=== PATIENT | female | born 1960 | race Caucasian/White ===

== ENCOUNTER 2021-09-30 11:57 | Outpatient (RCR) | payer BC, SELFPAY ==
[2021-09-30 13:03] LABS: Abs Immature Grans 0.05 10^3/uL (0.0-0.06); Absolute Basophil Count 0.03 10^3/uL (0.0-0.2); Absolute Lymphocyte Count 2.41 10^3/uL (1.2-3.4); Absolute Monocyte Count 0.87 10^3/uL (0.1-0.8); Absolute Neutrophil Count 5.77 10^3/uL (1.2-6.7); Basophils % 0.3; Eosinophils % 1.1; HCT 46.9 % (36.0-46.0); HGB 15.5 g/dL (11.2-15.7); Immature Grans % 0.5; Lymphocytes % 26.1; MCH 29.5 pg (27.0-33.0); MCV 89.3 fL (80-95); MPV 9.6 fL (8.0-11.0); Monocytes % 9.4; Neutrophils % 62.6; Nucleated RBC 0 %; Platelet Count 350 10^3/uL (130-400); RBC 5.25 10^6/uL (3.93-5.22); RDW 13.2 % (11.7-14.6); RDW-SD 43.3 fL; WBC 9.23 10^3/uL (4.4-10.8)
[2021-09-30 13:20] LABS: ALT 25 U/L (14-59); AST 20 U/L (15-37); Alkaline Phosphatase 64 U/L (46-116); Anion Gap 11.1 mmol/L (3-11); BUN 12 mg/dL (7-18); Bilirubin, Total 0.5 mg/dL (0.2-1.0); CO2 26.9 mmol/L (21.0-32.0); CREATININE 0.6 mg/dL (0.55-1.02); Calcium 9.5 mg/dL (8.5-10.1); Chloride 102 mmol/L (98-107); Glucose 90 mg/dL (74-106); Magnesium 2.2 mg/dL (1.8-2.4); Potassium 4.3 mmol/L (3.5-5.1); Sodium 140 mmol/L (136-145); Total Protein 7.6 g/dL (6.4-8.2)
== END 2021-10-29 23:59 | disposition home or self-care (01) ==
LOC: INF 11:57
PROVIDERS: PCP Registered Nurse; Visit Provider Internal Medicine Medical Oncology
DX: C34.32 Malignant neoplasm of lower lobe, left bronchus or lung (principal)
CPT/HCPCS: 36415; 80053; 83735; 85025

== ENCOUNTER 2022-05-20 12:05 | Outpatient (CLI) | payer BC, SELFPAY ==
[2022-05-20 13:00] LABS: Absolute Basophil Count 0.03 10^3/uL (0.0-0.2); Absolute Eosinophil Count 0.01 10^3/uL (0.0-0.7); Absolute Lymphocyte Count 0.71 10^3/uL (1.2-3.4); Absolute Monocyte Count 0.41 10^3/uL (0.1-0.8); Basophils % 0.2; Eosinophils % 0.1; HCT 38.9 % (36.0-46.0); Immature Grans % 1.4; MCH 30.8 pg (27.0-33.0); MCHC 33.4 % (32.0-36.0); MCV 92 fL (80-95); MPV 8.8 fL (8.0-11.0); Monocytes % 2.9; Neutrophils % 90.4; Platelet Count 344 10^3/uL (130-400); RBC 4.22 10^6/uL (3.93-5.22); RDW 13.2 % (11.7-14.6); RDW-SD 44.5 fL; WBC 14.27 10^3/uL (4.4-10.8)
[2022-05-20 13:23] LABS: ALT 57 U/L (14-59); AST 20 U/L (15-37); Albumin 3.9 g/dL (3.4-5.0); Alkaline Phosphatase 55 U/L (46-116); Anion Gap 7.7 mmol/L (3-11); BUN 14 mg/dL (7-18); Bilirubin, Total 0.5 mg/dL (0.2-1.0); CO2 30.3 mmol/L (21.0-32.0); CREATININE 0.8 mg/dL (0.55-1.02); Calcium 9.4 mg/dL (8.5-10.1); Chloride 101 mmol/L (98-107); Estimated GFR 83.78 (mL/min/1.73m2); FREE T4 1.27 ng/dL (0.76-1.46); Glucose 120 mg/dL (74-106); Magnesium 2.1 mg/dL (1.8-2.4); Potassium 4.4 mmol/L (3.5-5.1); Sodium 139 mmol/L (136-145); TSH 0.37 uIU/mL (0.36-3.74); Total Protein 7.4 g/dL (6.4-8.2)
== END 2022-05-20 12:06 | disposition home or self-care (01) ==
PROVIDERS: PCP Registered Nurse; Visit Provider Internal Medicine Medical Oncology
DX: C34.32 Malignant neoplasm of lower lobe, left bronchus or lung (principal); Z79.899 Other long term (current) drug therapy
CPT/HCPCS: 36415; 80053; 83735; 84439; 84443; 85025

== ENCOUNTER → 2022-05-25 13:00 | Outpatient (CLI) | payer BC, SELFPAY ==
--- NOTE | 2022-05-25 | DI.MRI_ITS ---
Exam(s) MR IAC BRAIN WO/W EXAM: MR IAC BRAIN WO/W CLINICAL HISTORY: LT LUNG CA, C34.32, LT JAW PAIN IN V3 DISTRIBUTION, ? CAUSE, METS SUSPECTED TECHNIQUE: Multiplanar multisequence MRI of the brain was performed. Both noninfused and contrast i nfused sequences were performed. IV Contrast injected was cc Dotarem. COMPARISON: No exams were available for comparison FINDINGS: INTERNAL AUDITORY CANALS: There is no evidence of mass the cerebellopontine angles there is no eviden ce of intra-canalicular acoustic neuroma-schwannoma on the sub millimeters slice Fiesta sequence. Th e 7th and 8th cranial nerves appear unremarkable. On the same sequence there is no obvious abnormal enlargement of the trigeminal-5th cranial nerves as they exit the leandro and head forward into Meckel's caves. CEREBRAL PARENCHYMA: No evidence of intracranial hemorrhage, mass effect nor shift of midline structu re. No extraaxial fluid collections. Ventricles are not enlarged nor shifted. There is no significant focal signal abnormality in the cerebellar hemispheres nor within the leandro, m idbrain, and thalami. A few nonspecific foci of FLAIR bright signal abnormality in the periventricular white matter. The l argest of these measures 7 x 6 millimeters, located lateral to the left lateral ventricle. There are no ring enhancing lesions in the brain. There is no abnormal meningeal enhancement. PITUITARY GLAND: No mass nor parasellar abnormality. No obvious abnormality in the cavernous sinuses. FLOW VOIDS: The expected flow void are noted. No evidence of obvious aneurysm nor obvious vascular ma lformation. PARANASAL SINUSES: The visualized paranasal sinuses appear unremarkable. ORBITS: No obvious abnormal findings. IMPRESSION: 1. No significant findings in the internal auditory canals. No evidence of acoustic schwannoma-neuro ma both within the cerebellopontine angles nor intra canalicular. 2. There are few small nonspecific foci periventricular signal abnormality as described above. None of these are associated hemorrhage, enhancement, nor cysts nor restricted diffusion to suggest acute ischemic event. 3. Other findings as above. DATA REPOSITORY:
[2022-05-25] MEDS: Normal Saline Flush 10 ML SYR IVP (15:28)
[2022-05-25] MEDS: Gadoterate meglumine 20 ML SYRINGE IVP (15:28)
== END ==
PROVIDERS: PCP Registered Nurse; Visit Provider Radiology Radiation Oncology
DX: C34.32 Malignant neoplasm of lower lobe, left bronchus or lung (principal)
CPT/HCPCS: 70553

== ENCOUNTER 2022-06-15 03:55 | Outpatient (CLI) | payer BC, SELFPAY ==
[2022-06-15 08:13] LABS: Abs Immature Grans 0.17 10^3/uL (0.0-0.06); Absolute Basophil Count 0.05 10^3/uL (0.0-0.2); Absolute Eosinophil Count 0.12 10^3/uL (0.0-0.7); Absolute Lymphocyte Count 0.73 10^3/uL (1.2-3.4); Absolute Monocyte Count 0.96 10^3/uL (0.1-0.8); Absolute Neutrophil Count 7.57 10^3/uL (1.2-6.7); Basophils % 0.5; Eosinophils % 1.3; HGB 11.2 g/dL (11.2-15.7); Immature Grans % 1.8; Lymphocytes % 7.6; MCV 94 fL (80-95); MPV 8.8 fL (8.0-11.0); Neutrophils % 78.8; Platelet Count 402 10^3/uL (130-400); RBC 3.73 10^6/uL (3.93-5.22); RDW 12.2 % (11.7-14.6); RDW-SD 42.3 fL
[2022-06-15 08:59] LABS: ALT 148 U/L (14-59); AST 61 U/L (15-37); Alkaline Phosphatase 91 U/L (46-116); Anion Gap 8.9 mmol/L (3-11); BUN 14 mg/dL (7-18); Bilirubin, Total 0.4 mg/dL (0.2-1.0); CO2 31.1 mmol/L (21.0-32.0); CREATININE 0.7 mg/dL (0.55-1.02); Calcium 9.1 mg/dL (8.5-10.1); Chloride 98 mmol/L (98-107); Estimated GFR 98.34 (mL/min/1.73m2); Glucose 119 mg/dL (74-106); Magnesium 1.7 mg/dL (1.8-2.4); Potassium 3.8 mmol/L (3.5-5.1); Sodium 138 mmol/L (136-145); TSH 0.93 uIU/mL (0.36-3.74); Total Protein 7.2 g/dL (6.4-8.2)
== END 2022-06-15 03:56 | disposition home or self-care (01) ==
LOC: LBO 03:55
PROVIDERS: PCP Registered Nurse; Visit Provider Internal Medicine Medical Oncology
DX: C34.32 Malignant neoplasm of lower lobe, left bronchus or lung (principal); Z79.899 Other long term (current) drug therapy
CPT/HCPCS: 36415; 80053; 83735; 84439; 84443; 85025

== ENCOUNTER 2022-06-20 06:44 | Emergency (ER) | payer BC, SELFPAY ==
[2022-06-20 06:53] VITALS: BP 103/75; PULSE 95; RESP 20; TEMP 37.4
--- NOTE | 2022-06-20 07:13 | DI.CT_ITS ---
Exam(s) CT CHEST PE CTA EXAM: CT CHEST PE CTA CLINICAL HISTORY: lung cancer, chemo, fever, cough, sob, r/o pe/pneu. TECHNIQUE: Imaging Protocol: Axial CT angiography was performed with multi-slice acquisition and mu lti-planar and/or 3D reconstructions. CONTRAST MATERIAL: Intravenous: Omnipaque 350 Contrast volume:structured data in ml COMPARISON: CT CT CHEST W/CONTRAST from 04/27/[address] ABDOMEN PELVIS W from 06/01/2022 FINDINGS: CT angiography of the chest was performed with intravenous infusion of 100 cc of Omnipaque 350. The patient reportedly has a history of lung carcinoma, a left hilar mass is noted with narrowing/obs truction of left lower lobe bronchus. The left lower lobe is atelectatic and or consolidated. These findings were not present on most recent prior examination June 01. No pleural effusion. No evidence of pulmonary embolic disease. Thoracic aorta is of normal diameter, no thoracic aortic an eurysm or dissection, major branch vessels appear intact. No additional mediastinal or hilar adenopathy. Images obtained through the upper abdomen show unremarkable appearance of the visualized portions of the liver, spleen, pancreas, adrenals, and kidneys. IMPRESSION: Interval development of predominant atelectasis and/or consolidation of left lower lobe in a patient with history of left hilar lung carcinoma.. No evidence of pulmonary embolic disease. RADIATION DOSE DELIVERED: 441.9mGy.cm Total DLP 441.9mGy.cm Total DLP DATA REPOSITORY: All CT scans at this facility are submitted to the National Radiology Data Registry (NRDR) Dose Index Registry (DIR) with the [employer] (ACR). RADIATION OPTIMIZATION: All CT scans at this facility use at least one of these dose optimization te chniques: automated exposure control; mA and/or kV adjustment per patient size (includes targeted exa ms where dose is matched to clinical indication); or iterative reconstruction.
--- NOTE | 2022-06-20 07:15 | W.ED.GENAD ---
Discharge Plan Discharge Details Chief Complaint: Fever Primary Care Provider: [facility] ED Provider: Jose A Merritt Home Meds and New Rx's Prescriptions: No Action lidocaine 5 % adhesive patch,medicated 1 patch topical DAILY Rx Instructions: leave on most painful area for up to 12 hrs acetaminophen 500 mg tablet 500 mg PO Q6H PRN psyllium husk 0.52 gram capsule 0.52 g PO DAILY albuterol sulfate 90 mcg/actuation aerosol powdr breath activated 2 inh inhalation Q4H PRN Trelegy Ellipta 200-62.5-25 mcg blister with device 1 inh inhalation DAILY simvastatin 20 mg tablet 20 mg PO DAILY multivitamin [Daily Multi-Vitamin] Tablet 1 tab PO DAILY prednisone 20 mg tablet 10 mg PO DAILY omeprazole 40 mg capsule,delayed release(DR/EC) 40 mg PO DAILY ibuprofen 600 mg tablet 600 mg PO Q6H PRN Medical Decision Making This is a pleasant 61-year-old female with a past medical history of lung cancer having already undergone radiation and just completing her first cycle of chemotherapy a few days ago, high cholesterol, hemolytic anemia, hypertension, COVID-19 in June, radiation pneumonitis, who presents today for evaluation of fever. Patient states that for the last few days she has had a mild cough. She has had intermittent productive sputum. Yellow in color, and then starting yesterday she developed a mild fever, last night she had a T-max of 102. She takes Tylenol and Motrin regularly for her chronic headaches. She does admit to headaches for the last few months. She has had an MRI recently which was unremarkable per her stated history. She denies any change in headache or neck pain over the last few months. She denies any urinary frequency. She denies any other complaints at this time. She has had the COVID-vaccine, but has not had a booster. She is on a baseline 2 to 3 L of O2 Exam is relatively benign. Lungs are clear but diminished. No runny nose. No nuchal rigidity. No meningeal signs. Differential is highest for neutropenic fever, pneumonia, UTI or bacteremia. We will evaluate for these etiologies, monitor closely and reassess. Symptoms appear clinically inconsistent with meningitis at this time. Case will be signed out to my colleague Dr. Phillip Ochoa for follow-up on labs and imaging Sign Out Yes HPI General Date/Time Provider Initiated Documentation: 06/20/22 07:13. HPI Narrative: This is a pleasant 61-year-old female with a past medical history of lung cancer having already undergone radiation and just completing her first cycle of chemotherapy a few days ago, high cholesterol, hemolytic anemia, hypertension, COVID-19 in June, radiation pneumonitis, who presents today for evaluation of fever. Patient states that for the last few days she has had a mild cough. She has had intermittent productive sputum. Yellow in color, and then starting yesterday she developed a mild fever, last night she had a T-max of 102. She takes Tylenol and Motrin regularly for her chronic headaches. She does admit to headaches for the last few months. She has had an MRI recently which was unremarkable per her stated history. She denies any change in headache or neck pain over the last few months. She denies any urinary frequency. She denies any other complaints at this time. She has had the COVID-vaccine, but has not had a booster. She is on a baseline 2 to 3 L of O2 Related Data Home Medications Medication Instructions Recorded Confirmed acetaminophen 500 mg tablet 500 mg PO Q6H PRN 01/08/22 06/20/22 albuterol sulfate 90 mcg/actuation 2 inh inhalation Q4H PRN 01/08/22 06/20/22 breath activated powder inhaler fluticasone fur. 200 mcg-umeclid 1 inh inhalation DAILY 01/08/22 06/20/22 62.5 mcg-vilant 25 mcg inhalat.powder (Trelegy Ellipta) lidocaine 5 % topical patch 1 patch topical DAILY 01/08/22 06/20/22 multivitamin (Daily Multi-Vitamin 1 tab PO DAILY 01/08/22 06/20/22 tablet) psyllium husk 0.52 gram capsule 0.52 g PO DAILY 01/08/22 06/20/22 simvastatin 20 mg tablet 20 mg PO DAILY 01/08/22 06/20/22 ibuprofen 600 mg tablet 600 mg PO Q6H PRN 01/18/22 06/20/22 omeprazole 40 mg capsule,delayed 40 mg PO DAILY 01/18/22 06/20/22 release prednisone 20 mg tablet 10 mg PO DAILY 01/18/22 06/20/22 Allergies Allergy/AdvReac Type Severity Reaction Status Date / Time cefixime Allergy Unverified 06/20/22 07:38 valsartan Allergy Unverified 06/20/22 07:38 General Stated Complaint: Fever BOB: 3 Review of Systems All systems reviewed & are unremarkable except as noted in HPI and below PFSH Social History Smoking/Tobacco Use Status: Former Tobacco Use Smoking risk assessment performed?: Yes Alcohol Intake: never Drug use: Never Substance use type: does not use Do you feel safe at home: Yes Do you feel safe in your relationship?: Yes Exam Narrative Exam Narrative: 1.Const: Well-nourished, Well-developed, appearing stated age 2.Eyes: PERRL, no conjunctival injection, and symmetrical lids. 3.ENT: Atraumatic external nose and ears. Moist MM. Neck: Symmetric, trachea midline, No thyromegaly. Patient demonstrates good movement of cervical neck. There is no nuchal rigidity, no nuchal tenderness. Patient is able to flex the neck without any difficulty or significant pain. Negative Kernig's and Brudzinski sign. 4.CVS: +S1/S2, No murmurs or gallops. Peripheral pulses 2+ and equal in all extremities. Brisk capillary refill in all extremities. 5.RESP: Unlabored respiratory effort. Clear to auscultation bilaterally. No wheezes rales or rhonchi 6.GI: Soft, Nontender/Nondistended, No hepatosplenomegaly. No guarding or rebound. 7.MSK: Normocephalic/Atraumatic, Extremities w/o deformity or ttp No cyanosis or clubbing, Normal movement of all extremities 8.Skin: Warm, Dry. No rashes or lesions. 9.Neuro: [employer] II-XII grossly intact. Sensation grossly intact, no focal neurologic deficits. 10.Psych: (AAO) x3. Appropriate mood and affect Course Vital Signs Vital signs: Vital Signs Temperature 37.4 C 06/20/22 06:53 Pulse 95 H 06/20/22 06:53 Respiratory Rate 20 06/20/22 06:53 Blood Pressure 103/75 06/20/22 06:53 Temperature 37.4 C 06/20/22 06:53 Temperature Source Temporal Artery Scan 06/20/22 06:53 Pulse 95 H 06/20/22 06:53 Respiratory Rate 20 06/20/22 06:53 Respiratory Effort 06/20/22 07:00 Blood Pressure 103/75 06/20/22 06:53 Blood Pressure Position Supine 06/20/22 06:53 Oxygen Delivery Method Nasal Cannula 06/20/22 06:53 Oxygen Flow Rate 3 06/20/22 06:53 Pain Level 10 06/20/22 06:53
[2022-06-20 07:38] LABS: Abs Immature Grans 0.11 10^3/uL (0.0-0.06); Absolute Basophil Count 0.03 10^3/uL (0.0-0.2); Absolute Eosinophil Count 0.03 10^3/uL (0.0-0.7); Absolute Monocyte Count 0.81 10^3/uL (0.1-0.8); Absolute Neutrophil Count 7.31 10^3/uL (1.2-6.7); Basophils % 0.3; Eosinophils % 0.3; HGB 10.7 g/dL (11.2-15.7); Immature Grans % 1.2; Lactate 0.8 mmol/L (0.6-1.4); Lymphocytes % 6.7; MCH 30.1 pg (27.0-33.0); MCHC 32.4 % (32.0-36.0); MCV 93 fL (80-95); Monocytes % 9.1; Neutrophils % 82.4; Platelet Count 481 10^3/uL (130-400); RBC 3.56 10^6/uL (3.93-5.22); RDW 12.6 % (11.7-14.6); RDW-SD 42.8 fL; WBC 8.89 10^3/uL (4.4-10.8)
[2022-06-20 07:57] LABS: ALT 156 U/L (14-59); AST 72 U/L (15-37); Albumin 2.9 g/dL (3.4-5.0); Alkaline Phosphatase 141 U/L (46-116); Anion Gap 7.4 mmol/L (3-11); BUN 11 mg/dL (7-18); Bilirubin, Total 0.4 mg/dL (0.2-1.0); CO2 32.6 mmol/L (21.0-32.0); CREATININE 0.7 mg/dL (0.55-1.02); Calcium 9.1 mg/dL (8.5-10.1); Chloride 97 mmol/L (98-107); Estimated GFR 98.34 (mL/min/1.73m2); Glucose 111 mg/dL (74-106); Potassium 3.7 mmol/L (3.5-5.1); Sodium 137 mmol/L (136-145); Total Protein 7.4 g/dL (6.4-8.2)
[2022-06-20] MEDS: Acetaminophen 500 MG TAB 1000 MG PO (07:59)
[2022-06-20 08:00] LABS: Bilirubin Negative (Negative); Blood Trace-intact (Negative); Clarity Clear (Clear); Glucose Negative (Negative); Ketones Negative (Negative); Leukocyte Esterase Negative (Negative); Nitrite Negative (Negative); Urobilinogen 0.2 EU/dL (Up TO 0.2); pH 6.5 (5-8)
[2022-06-20 08:07] LABS: Bacteria Negative HPF (Negative); C & S Indicated? C&S Done As Ordered; Casts Negative LPF (Negative); Crystals Negative HPF (Negative); Epithelial Cells Few HPF (Negative); Mucus Negative (Negative); RBC 0-2 HPF (0-2); WBC Negative HPF (0-5)
[2022-06-20 08:10] LABS: Procalcitonin < 0.1 ng/mL
[2022-06-20 08:15] LABS: COVID-19 PCR Negative (Negative); Influenza A PCR Negative (Negative); Influenza B PCR Negative (Negative); RSV PCR Negative (Negative)
[2022-06-20 08:19] LABS: Source Nasopharynx
--- NOTE | 2022-06-20 09:03 | DI.VRAD_ITS ---
PROCEDURE INFORMATION: Exam: CTA Chest With Contrast Exam date and time: 06/20/2022 8:22 AM Age: 61 years old Clinical indication: Other: Lung CA, chemo, fever, cough, SOB, R/O pe, pna TECHNIQUE: Imaging protocol: Computed tomographic angiography of the chest with contrast. 3D rendering (Not supervised by radiologist): MIP and/or 3D reconstructed images were created by the technologist. Radiation optimization: All CT scans at this facility use at least one of these dose optimization techniques: automated exposure control; mA and/or kV adjustment per patient size (includes targeted exams where dose is matched to clinical indication); or iterative reconstruction. Contrast material: OMNIPAQUE 350; Contrast volume: 100 ml; Contrast route: INTRAVENOUS (IV); COMPARISON: CT CTA CHEST W AND/OR WO CONTRAST 11/18/2021 12:15 PM FINDINGS: Pulmonary arteries: Somewhat suboptimal bolus timing. There is some mixing and volume averaging artifact involving the subsegmental arteries of the right lower lobe without definite central filling defects. Aorta: Unremarkable. No aortic aneurysm. No aortic dissection. Lungs: Severe emphysema. Near complete atelectasis of the left lower lobe, which obscures known left infrahilar mass. Atelectasis is likely secondary to obstruction of the left lower lobe bronchus by the hilar mass. Pleural spaces: No pneumothorax. No pleural effusion. Heart: No cardiomegaly. No pericardial effusion. Lymph nodes: No enlarged lymph nodes. Bones/joints: Subacute lateral left 8th rib fracture. Thoracic spondylosis. Unchanged multilevel endplate sclerosis. Soft tissues: Unremarkable. IMPRESSION: 1. Suboptimal bolus timing. Favor combination of mixing in volume averaging artifacts involving subsegmental arteries in the right lower lobe. No visualized central filling defects or occlusive pulmonary embolism. 2. Interval near complete atelectasis of the left lower lobe, likely secondary to obstruction of the bronchus by the known left infrahilar mass. 3. Subacute left lateral 8th rib fracture. Dictated and Authenticated by: Emily Mckeon MD. Ordering:NEO Naranjo MD
--- NOTE | 2022-06-20 11:26 | W.EDPROG ---
Date of service: 06/20/22 Time of Service: 14:00 Medical Decision Making Care signed out by Dr. Merritt. Labs reviewed and mild transamitis noted. Will send tick panel and hepatitis panel. I spoke with oncology Dr. Hernandez. Suspect LFTs and anemia secondary to chemo. Recommends send blood cultures. Will arrange for outpatient followup. Patient stable. Continues to be afebrile and hemodynamically stable. Results discussed with her and discharge plan discussed with and she is in agreement. Lab Data Lab results reviewed: Yes I reviewed the patient's lab results. Labs: 06/20/22 07:52 Urine - Clean Catch Urine Culture - Pending 06/20/22 07:30 Blood Blood Culture - Pending 06/20/22 07:40 Blood Blood Culture - Pending Laboratory Tests Range/Units 06/20/22 06/20/22 06/20/22 07:24 07:32 07:32 WBC (4.4-10.8) 10^3/uL RBC (3.93-5.22) 10^6/uL Hgb (11.2-15.7) g/dL Hct (36.0-46.0) % MCV (80-95) fL MCH (27.0-33.0) pg MCHC (32.0-36.0) % RDW (11.7-14.6) % Plt Count (130-400) 10^3/uL MPV (8.0-11.0) fL Immature Gran % Neutrophils % Lymphocytes % Monocytes % Eosinophils % Basophils % Nucleated RBC % (0.0-0.3) % Absolute Neutrophils (1.2-6.7) 10^3/uL Absolute Lymphocytes (1.2-3.4) 10^3/uL Absolute Monocytes (0.1-0.8) 10^3/uL Absolute Eosinophils (0.0-0.7) 10^3/uL Absolute Basophils (0.0-0.2) 10^3/uL VBG Lactate (0.6-1.4) mmol/L 0.8 Sodium (136-145) mmol/L 137 Potassium (3.5-5.1) mmol/L 3.7 Chloride (98-107) mmol/L 97 L Carbon Dioxide (21.0-32.0) mmol/L 32.6 H Anion Gap (3-11) mmol/L 7.4 BUN (7-18) mg/dL 11 Creatinine (0.55-1.02) mg/dL 0.7 Est GFR (CKD-EPI 2020) (mL/min/1.73m2) 98.34 Glucose (74-106) mg/dL 111 H Calcium (8.5-10.1) mg/dL 9.1 Total Bilirubin (0.2-1.0) mg/dL 0.4 Conjugated Bilirubin AST (15-37) U/L 72 H ALT (14-59) U/L 156 H Alkaline Phosphatase (46-116) U/L 141 H Total Protein (6.4-8.2) g/dL 7.4 Albumin (3.4-5.0) g/dL 2.9 L Procalcitonin ng/mL < 0.1 Urine Color (Yellow) Urine Clarity (Clear) Urine pH (5-8) Ur Specific [place] (1.005-1.025) Urine Protein (Negative) mg/dL Urine Ketones (Negative) mg/dL Urine Blood (Negative) Urine Nitrite (Negative) Urine Bilirubin (Negative) Urine Urobilinogen (Up TO 0.2) EU/dL Ur Leukocyte Esterase (Negative) Urine RBC (0-2) HPF Urine WBC (0-5) HPF Ur Epithelial Cells (Negative) HPF Urine Crystals (Negative) HPF Urine Bacteria (Negative) HPF Urine Casts (Negative) LPF Urine Mucus (Negative) Ur Culture Indicated? Urine Glucose (Negative) mg/dL COVID-19 Source Nasopharynx SARS-CoV-2 (PCR) (Negative) Negative Influenza Type A (PCR) (Negative) Negative Influenza Type B (PCR) (Negative) Negative RSV (PCR) (Negative) Negative Range/Units 06/20/22 06/20/22 06/20/22 07:32 07:52 09:02 WBC (4.4-10.8) 10^3/uL 8.89 RBC (3.93-5.22) 10^6/uL 3.56 L Hgb (11.2-15.7) g/dL 10.7 L Hct (36.0-46.0) % 33.0 L MCV (80-95) fL 93 MCH (27.0-33.0) pg 30.1 MCHC (32.0-36.0) % 32.4 RDW (11.7-14.6) % 12.6 Plt Count (130-400) 10^3/uL 481 H MPV (8.0-11.0) fL 9.0 Immature Gran % 1.2 Neutrophils % 82.4 Lymphocytes % 6.7 Monocytes % 9.1 Eosinophils % 0.3 Basophils % 0.3 Nucleated RBC % (0.0-0.3) % 0.0 Absolute Neutrophils (1.2-6.7) 10^3/uL 7.31 H Absolute Lymphocytes (1.2-3.4) 10^3/uL 0.60 L Absolute Monocytes (0.1-0.8) 10^3/uL 0.81 H Absolute Eosinophils (0.0-0.7) 10^3/uL 0.03 Absolute Basophils (0.0-0.2) 10^3/uL 0.03 VBG Lactate (0.6-1.4) mmol/L Sodium (136-145) mmol/L Potassium (3.5-5.1) mmol/L Chloride (98-107) mmol/L Carbon Dioxide (21.0-32.0) mmol/L Anion Gap (3-11) mmol/L BUN (7-18) mg/dL Creatinine (0.55-1.02) mg/dL Est GFR (CKD-EPI 2020) (mL/min/1.73m2) Glucose (74-106) mg/dL Calcium (8.5-10.1) mg/dL Total Bilirubin (0.2-1.0) mg/dL Cancelled Conjugated Bilirubin Cancelled AST (15-37) U/L Cancelled ALT (14-59) U/L Cancelled Alkaline Phosphatase (46-116) U/L Cancelled Total Protein (6.4-8.2) g/dL Cancelled Albumin (3.4-5.0) g/dL Cancelled Procalcitonin ng/mL Urine Color (Yellow) Yellow Urine Clarity (Clear) Clear Urine pH (5-8) 6.5 Ur Specific [place] (1.005-1.025) 1.020 Urine Protein (Negative) mg/dL Negative Urine Ketones (Negative) mg/dL Negative Urine Blood (Negative) Trace-intact H Urine Nitrite (Negative) Negative Urine Bilirubin (Negative) Negative Urine Urobilinogen (Up TO 0.2) EU/dL 0.2 Ur Leukocyte Esterase (Negative) Negative Urine RBC (0-2) HPF 0-2 Urine WBC (0-5) HPF Negative Ur Epithelial Cells (Negative) HPF Few Urine Crystals (Negative) HPF Negative Urine Bacteria (Negative) HPF Negative Urine Casts (Negative) LPF Negative Urine Mucus (Negative) Negative Ur Culture Indicated? C&S Done As Ordered Urine Glucose (Negative) mg/dL Negative COVID-19 Source SARS-CoV-2 (PCR) (Negative) Influenza Type A (PCR) (Negative) Influenza Type B (PCR) (Negative) RSV (PCR) (Negative) Sign Out No Sign Out Sign Out Data: Sign Out Comment: Cancer, chemotherapy, fever at home, afebrile here. Pending CTA of the chest to rule out pneumonia/PE, laboratory work-up and reassess Last updated by Jose A Merritt DO at 06/20/22 07:47 Discharge Plan Disposition Patient Disposition: Home Condition: Stable Discharge Details Clinical Impression: Fever, Transaminitis, Anemia, Chemotherapy adverse reaction Primary Care Provider: [facility] ED Provider: Phillip Ochoa Home Meds and New Rx's Prescriptions: No Action lidocaine 5 % adhesive patch,medicated 1 patch topical DAILY Rx Instructions: leave on most painful area for up to 12 hrs acetaminophen 500 mg tablet 500 mg PO Q6H PRN psyllium husk 0.52 gram capsule 0.52 g PO DAILY albuterol sulfate 90 mcg/actuation aerosol powdr breath activated 2 inh inhalation Q4H PRN Trelegy Ellipta 200-62.5-25 mcg blister with device 1 inh inhalation DAILY simvastatin 20 mg tablet 20 mg PO DAILY multivitamin [Daily Multi-Vitamin] Tablet 1 tab PO DAILY prednisone 20 mg tablet 10 mg PO DAILY omeprazole 40 mg capsule,delayed release(DR/EC) 40 mg PO DAILY ibuprofen 600 mg tablet 600 mg PO Q6H PRN Discharge Instructions Instructions: Fever in Adults (ED) Additional Instructions: Please follow-up with your oncologist. Call tomorrow. Be sure to discuss abnormal lab values that were determined today. Blood cultures are pending at time of discharge. If these are abnormal, you will be contacted for additional treatment. Please contact your primary care physician to arrange follow-up. Return to the ER immediately for any worsening or new concerning symptoms. Referrals: [facility] [Primary Care Provider] - Collins Agarwal [ NON-[facility] STAFF PHYSICIAN] - Discharge Data Discharge Date/Time-TO BE ENTERED AT DEPARTURE: 06/20/22 11:51
[2022-06-20 11:37] VITALS: BP 104/82; PULSE 79; RESP 17; TEMP 36.7; O2SAT 95
[2022-06-21 10:58] LABS: Hepatitis A Antibody IgM Negative (Negative); Hepatitis B Core Antibody Negative (Negative); Hepatitis B surface Ag Negative (Negative); Hepatitis C Ab w Rflx HCV PCR Negative (Negative)
[2022-06-21 12:10] LABS: Lyme Ab w Rflx to Lyme Confirm Negative (Negative)
[2022-06-21 21:14] LABS: Adenovirus DNA Result Negative (Negative); Metapneumovirus RNA Result Negative (Negative); Parainfluenza Type1 RNA Result Negative (Negative); Parainfluenza Type2 RNA Result Negative (Negative); Parainfluenza Type3 RNA Result Negative (Negative); Parainfluenza Type4 RNA Result Negative (Negative); Rhinovirus RNA Result Negative (Negative)
[2022-06-23 23:19] LABS: Anaplasma phagocytophilum Negative (Negative); B. miyamotoi PCR Negative (Negative); Babesia divergens/MO-1 Negative (Negative); Babesia duncani Negative (Negative); Babesia microti Negative (Negative); Ehrlichia chaffeensis Negative (Negative); Ehrlichia ewingii/canis Negative (Negative); Ehrlichia muris eauclairensis Negative (Negative)
== END 2022-06-20 11:51 | disposition home or self-care (01) ==
PROVIDERS: Student in an Organized Health Care Education/Training Program; Emergency Provider Student in an Organized Health Care Education/Training Program; PCP Nurse Practitioner Family
DX: T45.1X5A Adverse effect of antineoplastic and immunosuppressive drugs, initial encounter (principal); R74.01 Elevation of levels of liver transaminase levels; D58.9 Hereditary hemolytic anemia, unspecified; I10 Essential (primary) hypertension; E78.00 Pure hypercholesterolemia, unspecified; C34.90 Malignant neoplasm of unspecified part of unspecified bronchus or lung; Z86.16 Personal history of COVID-19; Z20.822 Contact with and (suspected) exposure to COVID-19
CPT/HCPCS: 36415; 71275; 80053; 80076; 84145; 86704; 86709; 86803; 87040; 87340; 87632; 87637; 87798; 99285; 81003; 81015; 83605; 85025; 86618; 87086; 99282

== ENCOUNTER 2022-06-28 02:56 | Outpatient (CLI) | payer BC, SELFPAY ==
[2022-06-28 08:51] LABS: Abs Immature Grans 0.66 10^3/uL (0.0-0.06); HCT 31.7 % (36.0-46.0); HGB 10.1 g/dL (11.2-15.7); MCH 29.5 pg (27.0-33.0); MCHC 31.9 % (32.0-36.0); MCV 93 fL (80-95); MPV 8.5 fL (8.0-11.0); Platelet Count 418 10^3/uL (130-400); RBC 3.42 10^6/uL (3.93-5.22); RDW-SD 43.7 fL; WBC 14.84 10^3/uL (4.4-10.8)
[2022-06-28 09:04] LABS: Absolute Lymphocyte Count 0.59 10^3/uL (1.2-3.4); Absolute Neutrophil Count 13.21 10^3/uL (1.2-6.7); Atypical Lymphocytes % 2; Bands % 0
[2022-06-28 09:06] LABS: Absolute Monocyte Count 1.04 10^3/uL (0.1-0.8)
[2022-06-28 09:07] LABS: Diff Comment Manual Differential; RBC Morphology Normal
[2022-06-28 09:22] LABS: ALT 120 U/L (14-59); AST 61 U/L (15-37); Albumin 2.3 g/dL (3.4-5.0); Alkaline Phosphatase 170 U/L (46-116); Anion Gap 7.4 mmol/L (3-11); BUN 10 mg/dL (7-18); Bilirubin, Total 0.3 mg/dL (0.2-1.0); CO2 30.6 mmol/L (21.0-32.0); CREATININE 0.6 mg/dL (0.55-1.02); Calcium 8.9 mg/dL (8.5-10.1); Chloride 99 mmol/L (98-107); Estimated GFR 102.06 (mL/min/1.73m2); FREE T4 1.49 ng/dL (0.76-1.46); Glucose 134 mg/dL (74-106); Magnesium 1.8 mg/dL (1.8-2.4); Potassium 3.6 mmol/L (3.5-5.1); Sodium 137 mmol/L (136-145); TSH 0.54 uIU/mL (0.36-3.74); Total Protein 6.8 g/dL (6.4-8.2)
== END 2022-06-28 02:57 | disposition home or self-care (01) ==
LOC: LBO 02:56
PROVIDERS: PCP Nurse Practitioner Family; Visit Provider Internal Medicine Medical Oncology
DX: C34.32 Malignant neoplasm of lower lobe, left bronchus or lung (principal); Z79.899 Other long term (current) drug therapy
CPT/HCPCS: 36415; 80053; 83735; 84439; 84443; 85025

== ENCOUNTER 2022-07-05 04:16 | Outpatient (CLI) | payer BC, SELFPAY ==
[2022-07-05 12:20] LABS: Abs Immature Grans 0.17 10^3/uL (0.0-0.06); Absolute Eosinophil Count 0.02 10^3/uL (0.0-0.7); Absolute Lymphocyte Count 0.66 10^3/uL (1.2-3.4); Absolute Monocyte Count 0.48 10^3/uL (0.1-0.8); Absolute Neutrophil Count 13.97 10^3/uL (1.2-6.7); Basophils % 0.3; Eosinophils % 0.1; HCT 34.1 % (36.0-46.0); HGB 11.2 g/dL (11.2-15.7); Immature Grans % 1.1; Lymphocytes % 4.3; MCH 29.9 pg (27.0-33.0); MCHC 32.8 % (32.0-36.0); MCV 91 fL (80-95); MPV 8.7 fL (8.0-11.0); Monocytes % 3.1; Neutrophils % 91.1; Platelet Count 374 10^3/uL (130-400); RBC 3.75 10^6/uL (3.93-5.22); RDW 12.6 % (11.7-14.6); RDW-SD 41.8 fL; WBC 15.34 10^3/uL (4.4-10.8)
[2022-07-05 12:21] LABS: Absolute Basophil Count 0.05 10^3/uL (0.0-0.2)
[2022-07-05 12:48] LABS: ALT 160 U/L (14-59); AST 57 U/L (15-37); Albumin 3.1 g/dL (3.4-5.0); Alkaline Phosphatase 140 U/L (46-116); Anion Gap 7.5 mmol/L (3-11); BUN 19 mg/dL (7-18); Bilirubin, Total 0.3 mg/dL (0.2-1.0); CO2 33.5 mmol/L (21.0-32.0); CREATININE 0.6 mg/dL (0.55-1.02); Calcium 9.5 mg/dL (8.5-10.1); Chloride 97 mmol/L (98-107); Estimated GFR 101.42 (mL/min/1.73m2); FREE T4 1.35 ng/dL (0.76-1.46); Glucose 119 mg/dL (74-106); Magnesium 1.9 mg/dL (1.8-2.4); Potassium 3.8 mmol/L (3.5-5.1); Sodium 138 mmol/L (136-145); TSH 0.55 uIU/mL (0.36-3.74); Total Protein 7.4 g/dL (6.4-8.2)
== END 2022-07-05 04:17 | disposition home or self-care (01) ==
PROVIDERS: PCP Nurse Practitioner Family; Visit Provider Internal Medicine Medical Oncology
DX: C34.32 Malignant neoplasm of lower lobe, left bronchus or lung (principal); Z79.899 Other long term (current) drug therapy
CPT/HCPCS: 36415; 80053; 83735; 84439; 84443; 85025

== ENCOUNTER 2022-07-19 02:52 | Outpatient (CLI) | payer BC, SELFPAY ==
[2022-07-19 08:54] LABS: Abs Immature Grans 0.13 10^3/uL (0.0-0.06); Absolute Basophil Count 0.03 10^3/uL (0.0-0.2); Absolute Eosinophil Count 0.03 10^3/uL (0.0-0.7); Absolute Lymphocyte Count 0.54 10^3/uL (1.2-3.4); Absolute Monocyte Count 0.86 10^3/uL (0.1-0.8); Absolute Neutrophil Count 7.21 10^3/uL (1.2-6.7); Basophils % 0.3; Eosinophils % 0.3; HCT 32.4 % (36.0-46.0); HGB 10.2 g/dL (11.2-15.7); Immature Grans % 1.5; Lymphocytes % 6.1; MCHC 31.5 % (32.0-36.0); MCV 92 fL (80-95); MPV 8.4 fL (8.0-11.0); Monocytes % 9.8; Platelet Count 308 10^3/uL (130-400); RBC 3.52 10^6/uL (3.93-5.22); RDW 14.5 % (11.7-14.6); RDW-SD 47.7 fL
[2022-07-19 09:32] LABS: ALT 78 U/L (14-59); AST 29 U/L (15-37); Alkaline Phosphatase 99 U/L (46-116); Anion Gap 6.7 mmol/L (3-11); BUN 11 mg/dL (7-18); Bilirubin, Total 0.3 mg/dL (0.2-1.0); CO2 31.3 mmol/L (21.0-32.0); CREATININE 0.7 mg/dL (0.55-1.02); Calcium 8.7 mg/dL (8.5-10.1); Chloride 100 mmol/L (98-107); Estimated GFR 97.72 (mL/min/1.73m2); FREE T4 1.13 ng/dL (0.76-1.46); Glucose 132 mg/dL (74-106); Magnesium 1.8 mg/dL (1.8-2.4); Potassium 3.8 mmol/L (3.5-5.1); Sodium 138 mmol/L (136-145); TSH 0.57 uIU/mL (0.36-3.74)
== END 2022-07-19 02:53 | disposition home or self-care (01) ==
LOC: LBO 02:52
PROVIDERS: PCP Nurse Practitioner Family; Visit Provider Internal Medicine Medical Oncology
DX: C34.32 Malignant neoplasm of lower lobe, left bronchus or lung (principal); Z79.899 Other long term (current) drug therapy
CPT/HCPCS: 36415; 80053; 83735; 84439; 84443; 85025

== ENCOUNTER 2022-07-28 02:20 | Outpatient (CLI) | payer BC, SELFPAY ==
[2022-07-28 07:30] LABS: Abs Immature Grans 0.11 10^3/uL (0.0-0.06); Absolute Basophil Count 0.03 10^3/uL (0.0-0.2); Absolute Eosinophil Count 0.03 10^3/uL (0.0-0.7); Absolute Lymphocyte Count 0.98 10^3/uL (1.2-3.4); Absolute Monocyte Count 0.66 10^3/uL (0.1-0.8); Absolute Neutrophil Count 6.07 10^3/uL (1.2-6.7); Basophils % 0.4; Eosinophils % 0.4; HCT 30.9 % (36.0-46.0); Immature Grans % 1.4; Lymphocytes % 12.4; MCH 29.3 pg (27.0-33.0); MCHC 32.4 % (32.0-36.0); MCV 91 fL (80-95); MPV 8.8 fL (8.0-11.0); Monocytes % 8.4; Platelet Count 305 10^3/uL (130-400); RBC 3.41 10^6/uL (3.93-5.22); RDW 14.6 % (11.7-14.6); RDW-SD 47.7 fL; WBC 7.88 10^3/uL (4.4-10.8)
[2022-07-28 07:50] LABS: ALT 157 U/L (14-59); AST 52 U/L (15-37); Alkaline Phosphatase 91 U/L (46-116); Anion Gap 5.8 mmol/L (3-11); BUN 13 mg/dL (7-18); Bilirubin, Total 0.2 mg/dL (0.2-1.0); CO2 33.2 mmol/L (21.0-32.0); CREATININE 0.6 mg/dL (0.55-1.02); Calcium 9.1 mg/dL (8.5-10.1); Chloride 102 mmol/L (98-107); Estimated GFR 101.42 (mL/min/1.73m2); Glucose 106 mg/dL (74-106); Magnesium 1.8 mg/dL (1.8-2.4); Potassium 3.2 mmol/L (3.5-5.1); Sodium 141 mmol/L (136-145); Total Protein 6.7 g/dL (6.4-8.2)
== END 2022-07-28 02:21 | disposition home or self-care (01) ==
LOC: LBO 02:20
PROVIDERS: PCP Nurse Practitioner Family; Visit Provider Internal Medicine Medical Oncology
DX: C34.32 Malignant neoplasm of lower lobe, left bronchus or lung (principal); Z79.899 Other long term (current) drug therapy
CPT/HCPCS: 36415; 80053; 83735; 85025

== ENCOUNTER 2022-08-09 03:21 | Outpatient (CLI) | payer BC, SELFPAY ==
[2022-08-09 08:46] LABS: Abs Immature Grans 0.11 10^3/uL (0.0-0.06); Absolute Basophil Count 0.03 10^3/uL (0.0-0.2); Absolute Eosinophil Count 0.04 10^3/uL (0.0-0.7); Absolute Monocyte Count 0.97 10^3/uL (0.1-0.8); Absolute Neutrophil Count 5.24 10^3/uL (1.2-6.7); Basophils % 0.4; Eosinophils % 0.5; HCT 35.4 % (36.0-46.0); HGB 11.1 g/dL (11.2-15.7); Immature Grans % 1.5; Lymphocytes % 13.5; MCH 29.3 pg (27.0-33.0); MCHC 31.4 % (32.0-36.0); MCV 93 fL (80-95); MPV 8.6 fL (8.0-11.0); Monocytes % 13.1; Platelet Count 262 10^3/uL (130-400); RBC 3.79 10^6/uL (3.93-5.22); RDW 16.5 % (11.7-14.6); WBC 7.39 10^3/uL (4.4-10.8)
[2022-08-09 09:09] LABS: ALT 53 U/L (14-59); AST 23 U/L (15-37); Albumin 3.4 g/dL (3.4-5.0); Alkaline Phosphatase 75 U/L (46-116); Anion Gap 6.2 mmol/L (3-11); BUN 12 mg/dL (7-18); Bilirubin, Total 0.3 mg/dL (0.2-1.0); CO2 33.8 mmol/L (21.0-32.0); CREATININE 0.7 mg/dL (0.55-1.02); Calcium 9.3 mg/dL (8.5-10.1); Chloride 98 mmol/L (98-107); Estimated GFR 97.72 (mL/min/1.73m2); FREE T4 1.05 ng/dL (0.76-1.46); Glucose 105 mg/dL (74-106); Magnesium 2.1 mg/dL (1.8-2.4); Sodium 138 mmol/L (136-145); Total Protein 7.3 g/dL (6.4-8.2)
== END 2022-08-09 03:22 | disposition home or self-care (01) ==
LOC: LBO 03:21
PROVIDERS: PCP Nurse Practitioner Family; Visit Provider Internal Medicine Medical Oncology
DX: C34.32 Malignant neoplasm of lower lobe, left bronchus or lung (principal); Z79.899 Other long term (current) drug therapy
CPT/HCPCS: 36415; 80053; 83735; 84439; 84443; 85025

== ENCOUNTER 2022-08-17 03:10 | Outpatient (CLI) | payer BC, SELFPAY ==
[2022-08-17 13:09] LABS: Abs Immature Grans 0.11 10^3/uL (0.0-0.06); Absolute Basophil Count 0.02 10^3/uL (0.0-0.2); Absolute Eosinophil Count 0.01 10^3/uL (0.0-0.7); Absolute Lymphocyte Count 0.53 10^3/uL (1.2-3.4); Absolute Monocyte Count 0.46 10^3/uL (0.1-0.8); Absolute Neutrophil Count 7.83 10^3/uL (1.2-6.7); Basophils % 0.2; Eosinophils % 0.1; HCT 31.9 % (36.0-46.0); HGB 10.1 g/dL (11.2-15.7); Immature Grans % 1.2; Lymphocytes % 5.9; MCH 29.4 pg (27.0-33.0); MCHC 31.7 % (32.0-36.0); MCV 93 fL (80-95); MPV 8.9 fL (8.0-11.0); Monocytes % 5.1; Neutrophils % 87.5; Platelet Count 241 10^3/uL (130-400); RBC 3.43 10^6/uL (3.93-5.22); RDW 16.3 % (11.7-14.6); RDW-SD 54.4 fL; WBC 8.96 10^3/uL (4.4-10.8)
[2022-08-17 13:57] LABS: ALT 54 U/L (14-59); AST 30 U/L (15-37); Albumin 3.5 g/dL (3.4-5.0); Alkaline Phosphatase 68 U/L (46-116); Anion Gap 4.9 mmol/L (3-11); BUN 10 mg/dL (7-18); Bilirubin, Total 0.3 mg/dL (0.2-1.0); CO2 33.1 mmol/L (21.0-32.0); CREATININE 0.6 mg/dL (0.55-1.02); Calcium 9.3 mg/dL (8.5-10.1); Chloride 98 mmol/L (98-107); Estimated GFR 101.42 (mL/min/1.73m2); FREE T4 1.18 ng/dL (0.76-1.46); Glucose 117 mg/dL (74-106); Magnesium 1.8 mg/dL (1.8-2.4); Potassium 3.7 mmol/L (3.5-5.1); Sodium 136 mmol/L (136-145); Total Protein 7.2 g/dL (6.4-8.2)
== END 2022-08-17 03:11 | disposition home or self-care (01) ==
LOC: LBO 03:10
PROVIDERS: PCP Nurse Practitioner Family; Visit Provider Internal Medicine Medical Oncology
DX: C34.32 Malignant neoplasm of lower lobe, left bronchus or lung (principal); Z79.899 Other long term (current) drug therapy
CPT/HCPCS: 36415; 80053; 83735; 84439; 84443; 85025

== ENCOUNTER 2022-08-30 03:00 | Outpatient (CLI) | payer BC, SELFPAY ==
[2022-08-30 12:38] LABS: Abs Immature Grans 0.08 10^3/uL (0.0-0.06); Absolute Basophil Count 0.02 10^3/uL (0.0-0.2); Absolute Eosinophil Count 0.01 10^3/uL (0.0-0.7); Absolute Lymphocyte Count 0.58 10^3/uL (1.2-3.4); Absolute Monocyte Count 0.61 10^3/uL (0.1-0.8); Absolute Neutrophil Count 5.63 10^3/uL (1.2-6.7); Basophils % 0.3; Eosinophils % 0.1; HCT 35.2 % (36.0-46.0); HGB 11.2 g/dL (11.2-15.7); Immature Grans % 1.2; Lymphocytes % 8.4; MCH 30.3 pg (27.0-33.0); MCHC 31.8 % (32.0-36.0); MCV 95 fL (80-95); MPV 8.8 fL (8.0-11.0); Monocytes % 8.8; Neutrophils % 81.2; Platelet Count 248 10^3/uL (130-400); RDW 17.2 % (11.7-14.6); RDW-SD 59.4 fL; WBC 6.93 10^3/uL (4.4-10.8)
[2022-08-30 13:09] LABS: ALT 37 U/L (14-59); AST 23 U/L (15-37); Albumin 3.9 g/dL (3.4-5.0); Alkaline Phosphatase 68 U/L (46-116); Anion Gap 4.3 mmol/L (3-11); BUN 12 mg/dL (7-18); Bilirubin, Total 0.3 mg/dL (0.2-1.0); CO2 34.7 mmol/L (21.0-32.0); CREATININE 0.7 mg/dL (0.55-1.02); Calcium 9.5 mg/dL (8.5-10.1); Chloride 101 mmol/L (98-107); Estimated GFR 97.72 (mL/min/1.73m2); FREE T4 1.08 ng/dL (0.76-1.46); Glucose 110 mg/dL (74-106); Potassium 3.9 mmol/L (3.5-5.1); Sodium 140 mmol/L (136-145); TSH 0.67 uIU/mL (0.36-3.74); Total Protein 7.4 g/dL (6.4-8.2)
== END 2022-08-30 03:01 | disposition home or self-care (01) ==
LOC: LBO 03:00
PROVIDERS: PCP Nurse Practitioner Family; Visit Provider Internal Medicine Medical Oncology
DX: C34.32 Malignant neoplasm of lower lobe, left bronchus or lung (principal); Z79.899 Other long term (current) drug therapy
CPT/HCPCS: 36415; 80053; 83735; 84439; 84443; 85025

== ENCOUNTER 2022-09-09 10:02 | Emergency (ER) | payer MEDICARE, BC, SELFPAY ==
[2022-09-09] VITALS (49 sets, daily range): BP systolic 102–157; BP diastolic 69–92; PULSE 63–94; RESP 14–32; TEMP 36.7; O2SAT 84–100
--- NOTE | 2022-09-09 10:05 | RT.EKG_ITS ---
APPROVED REPORT Exam: Resting ECG Reason for Exam: sob Patient Location: E HR:67 bpm ECG Measurements Heart Rate 67 AXIS MA 146 P 53 QRSd 85 QRS 57 QT 383 T 59 QTc 404 Conclusion Sinus rhythm...normal P axis, V-rate 60- 99 Low voltage, precordial leads...precordial leads <1.0mV
[2022-09-09 11:08] LABS: Abs Immature Grans 0.05 10^3/uL (0.0-0.06); Absolute Basophil Count 0.02 10^3/uL (0.0-0.2); Absolute Eosinophil Count 0.04 10^3/uL (0.0-0.7); Absolute Monocyte Count 0.75 10^3/uL (0.1-0.8); Absolute Neutrophil Count 4.33 10^3/uL (1.2-6.7); Basophils % 0.3; Eosinophils % 0.7; HCT 37.5 % (36.0-46.0); Immature Grans % 0.8; Lymphocytes % 11.9; MCH 30.1 pg (27.0-33.0); MCV 94 fL (80-95); MPV 8.7 fL (8.0-11.0); Monocytes % 12.7; Neutrophils % 73.6; Platelet Count 284 10^3/uL (130-400); RBC 3.99 10^6/uL (3.93-5.22); RDW 16.5 % (11.7-14.6); RDW-SD 57.6 fL; WBC 5.89 10^3/uL (4.4-10.8)
[2022-09-09] MEDS: ACETAMINOPHEN 1,000 MG/100 ML BTL 400 MG IVPB (11:10)
[2022-09-09 11:24] LABS: ALT 36 U/L (14-59); AST 22 U/L (15-37); Albumin 3.6 g/dL (3.4-5.0); Alkaline Phosphatase 65 U/L (46-116); Anion Gap 5.9 mmol/L (3-11); BUN 10 mg/dL (7-18); Bilirubin, Total 0.4 mg/dL (0.2-1.0); CO2 34.1 mmol/L (21.0-32.0); CREATININE 0.6 mg/dL (0.55-1.02); Calcium 9.4 mg/dL (8.5-10.1); Chloride 101 mmol/L (98-107); Estimated GFR 101.42 (mL/min/1.73m2); Glucose 96 mg/dL (74-106); Sodium 141 mmol/L (136-145); Total Protein 7.1 g/dL (6.4-8.2); Troponin I < 50 ng/L (<or=60)
[2022-09-09 11:25] LABS: INR 0.9 (0.9-1.1); Prothrombin Time 9.5 sec (9.3-11.0)
--- NOTE | 2022-09-09 12:28 | DI.CT_ITS ---
Exam(s) CT CHEST PE CTA EXAM: CT CHEST PE CTA CLINICAL HISTORY: left chest pain and shortness of breath. TECHNIQUE: Imaging Protocol: CT angiography of the chest was performed using pulmonary embolus kadi col. Multi planar reconstructions were performed. CONTRAST MATERIAL: Intravenous: Omnipaque 350 Contrast volume: 100 cc COMPARISON: CT CT CHEST PE CTA from 06/20/2022 FINDINGS: CHEST: There is apparently a known history of left lung malignancy here. PULMONARY ARTERIES: There are no intraluminal filling defects to suggest acute pulmonary emboli. LUNGS: COPD emphysematous changes in the lung bhagat again noted. On the left side there is again no osvaldo left hilar mass with obstruction of the left lower lobe bronchus and collapse / hepatization of t he left lower lobe. The vessels traversing this collapse left lower lobe are not thrombosed. There is some adenopathy in the left hilum again noted. There is no obvious subcarinal adenopathy. There is a small amount of left pleural fluid. The amount of collapsed and atelectatic lung in the left lo wer lobe is slightly decreased when compared to 06/20/2022. On the opposite-right side there is are no obvious masses nor pleural effusion. However, on 1 image there is a small nodular density in the right lower lobe which measures 4 millime ters. Possibly significant. Remainder of the right lung is clear. MEDIASTINUM: Left hilar adenopathy again noted. No subcarinal adenopathy. No right hilar adenopathy . No adenopathy in the anterior mediastinal fat. CARDIAC: Heart size is upper normal. There is no pericardial effusion.Caliber of the thoracic aorta is within normal limits. There is no significant shift of the interventricular septum. PARTIALLY VISUALIZED UPPERMOST ABDOMEN: No adrenal masses. Gallbladder surgically absent. Visualize d spleen normal size. OSSEOUS: No significant osseous lesions.. IMPRESSION: 1. No evidence of acute pulmonary emboli. 2. Significant volume loss in left lower lobe again noted with occlusion of the left lower lobe bronc hus. Neoplastic appearance. Left hilar adenopathy again noted. No subcarinal adenopathy. 3. 4 millimeter nodular infiltrate noted in the opposite-right lung-right lower lobe. Possibly signi ficant. No pleural effusion. No hilar adenopathy on the right side. RADIATION DOSE DELIVERED: 502.58mGy.cm Total DLP DATA REPOSITORY: All CT scans at this facility are submitted to the National Radiology Data Registry (NRDR) Dose Index Registry (DIR) with the [employer] (ACR). RADIATION OPTIMIZATION: All CT scans at this facility use at least one of these dose optimization te chniques: automated exposure control; mA and/or kV adjustment per patient size (includes targeted exa ms where dose is matched to clinical indication); or iterative reconstruction.
[2022-09-09] MEDS: Normal Saline - Diluent 50 ML VIAL IV (12:42)
[2022-09-09] MEDS: Omnipaque 350 MG/ML 100 ML BTL IJ (12:43)
[2022-09-09] MEDS: Albuterol 2.5 MG/3 ML INH SOLN VIAL UPD ×2 (12:53→14:29)
[2022-09-09 14:34] LABS: Troponin I < 50 ng/L (<or=60)
[2022-09-09 15:12] LABS: COVID-19 PCR Negative (Negative); Influenza A PCR Negative (Negative); Influenza B PCR Negative (Negative); RSV PCR Negative (Negative)
[2022-09-09 15:19] LABS: Source Nasopharynx
--- NOTE | 2022-09-09 15:57 | ED.GENADUL_ITS ---
Discharge Plan Disposition Patient Disposition: Home Discharge Details Clinical Impression: Chest pain, Hemoptysis Primary Care Provider: Jose Pollack ED Provider: Marina Martinez Home Meds and New Rx's Prescriptions: New doxycycline hyclate 100 mg capsule 100 mg PO BID Qty: 20 0RF (DME) nebulizer and compressor Device See Rx Instructions .Route Qty: 1 0RF Rx Instructions: As directed albuterol sulfate 2.5 mg/0.5 mL solution for nebulization 5 mg inhalation QID PRNQty: 30 0RF tramadol 50 mg tablet 50 mg PO Q8H PRNQty: 10 0RF Continued lidocaine 5 % adhesive patch,medicated 1 patch topical DAILY Rx Instructions: leave on most painful area for up to 12 hrs acetaminophen 500 mg tablet 500 mg PO Q6H PRN psyllium husk 0.52 gram capsule 0.52 g PO DAILY albuterol sulfate 90 mcg/actuation aerosol powdr breath activated 2 inh inhalation Q4H PRN Trelegy Ellipta 200-62.5-25 mcg blister with device 1 inh inhalation DAILY simvastatin 20 mg tablet 20 mg PO DAILY multivitamin [Daily Multi-Vitamin] Tablet 1 tab PO DAILY prednisone 20 mg tablet 10 mg PO DAILY omeprazole 40 mg capsule,delayed release(DR/EC) 40 mg PO DAILY ibuprofen 600 mg tablet 600 mg PO Q6H PRN Discharge Instructions Instructions: Chest Pain (ED) Additional Instructions: take antibiotics as prescribed use neb as needed, every 4-6 hours yogurt daily while on antibiotic use spacer with inhaler if prefer not to use nebulizer, same dosing (every 4-6 hours) follow-up with oncologist humidifier in your room coat your nostrils twice daily with vaseline return earlier with new or worsening complaints Referrals: Jose Pollack [Primary Care Provider] - 1 day Discharge Data Discharge Date/Time-TO BE ENTERED AT DEPARTURE: 09/09/22 15:50 Medical Decision Making 62-year-old female who presents for shortness of breath and hemoptysis no Episodes of emesis in the emergency department, CTA was ordered secondary to patient's comorbidities and presentation of hemoptysis 1. No evidence of acute pulmonary emboli. 2. Significant volume loss in left lower lobe again noted with occlusion of the left lower lobe bronchus.? Neoplastic appearance.? Left hilar adenopathy again noted.? No subcarinal adenopathy. 3. 4 millimeter nodular infiltrate noted in the opposite-right lung-right lower lobe.? Possibly significant.? No pleural effusion.? No hilar adenopathy on the right side. 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 [facility], recommendation for to treat for pneumonia and in the absence current hemoptysis, patient will return immediately with new or worsening complaints She is not anticoagulated She is feeling marked improvement after DuoNeb administration, and given DuoNebs and nebulizer for Placed steroids for comfort and wheezing and antibiotics, return precautions reviewed and patient expressed understanding Encouraged to follow-up with her primary care physician 1 to 2 days assessments Vitals have been stable throughout encounter Hemodynamically stable, hemoglobin and hematocrit within normal limits Fluvid negative Medical Records Medical records reviewed: Yes I reviewed the patient's medical records. Lab Data Lab results reviewed: Yes I reviewed the patient's lab results. ECG Data Prior ECG tracings: available for review HPI General Date/Time Provider Initiated Documentation: 09/09/22 10:22 . HPI Narrative: This 62-year-old female presents with shortness of breath worsening since yesterday. She states she has been sick intermittently completed course of antibiotics without relief in symptoms. She presents today secondary to 2 episodes of hemoptysis. She states dime size area. . Denies clots or deep purulent blood. Denies any known sick contacts. Last chemo was approximately 1 week ago and uneventful. History of squamous cell carcinoma radiation. Related Data Home Medications Medication Instructions Recorded Confirmed acetaminophen 500 mg tablet 500 mg PO Q6H PRN 01/08/22 09/09/22 albuterol sulfate 90 mcg/actuation 2 inh inhalation Q4H PRN 01/08/22 09/09/22 breath activated powder inhaler fluticasone fur. 200 mcg-umeclid 1 inh inhalation DAILY 01/08/22 09/09/22 62.5 mcg-vilant 25 mcg inhalat.powder (Trelegy Ellipta) lidocaine 5 % topical patch 1 patch topical DAILY 01/08/22 09/09/22 multivitamin (Daily Multi-Vitamin 1 tab PO DAILY 01/08/22 09/09/22 tablet) psyllium husk 0.52 gram capsule 0.52 g PO DAILY 01/08/22 06/20/22 simvastatin 20 mg tablet 20 mg PO DAILY 01/08/22 09/09/22 ibuprofen 600 mg tablet 600 mg PO Q6H PRN 01/18/22 09/09/22 omeprazole 40 mg capsule,delayed 40 mg PO DAILY 01/18/22 09/09/22 release prednisone 20 mg tablet 10 mg PO DAILY 01/18/22 09/09/22 albuterol sulfate 2.5 mg/0.5 mL 5 mg inhalation QID PRN #30 ea 09/09/22 solution for nebulization doxycycline hyclate 100 mg capsule 100 mg PO BID #20 caps 09/09/22 nebulizer and compressor #1 ea 09/09/22 tramadol 50 mg tablet 50 mg PO Q8H PRN #10 tabs 09/09/22 Previous Rx's Medication Instructions Recorded albuterol sulfate 2.5 mg/0.5 mL 5 mg inhalation QID PRN #30 ea 09/09/22 solution for nebulization doxycycline hyclate 100 mg capsule 100 mg PO BID #20 caps 09/09/22 nebulizer and compressor #1 ea 09/09/22 tramadol 50 mg tablet 50 mg PO Q8H PRN #10 tabs 09/09/22 Allergies Allergy/AdvReac Type Severity Reaction Status Date / Time valsartan Allergy Hemolytic Unverified 06/20/22 07:50 anemia cefixime AdvReac Anemia Unverified 06/20/22 07:50 General Stated Complaint: RespSymp BOB: 3 PFSH All Active Problems (Updated 09/09/22 @ 15:35 by ENRRIQUE Butler) Chest pain (Acute) Hemoptysis (Acute) Bronchitis after surgery (Acute) Social History Smoking/Tobacco Use Status: Former Tobacco Use Smoking risk assessment performed?: Yes Alcohol Intake: never Drug use: Never Substance use type: does not use Do you feel safe at home: Yes Do you feel safe in your relationship?: Yes Exam Const General: cooperative, comfortable and no acute distress HENMT Head: normal to inspection Other: No blood noted in nares Eyes Pupils: PERRL Resp Effort & Inspection: normal respiratory effort Other: wheezes, no respiratory distress Cardio Rate: regular rate Rhythm: regular rhythm Skin General skin exam: no rashes or lesions noted Neuro General: patient alert and patient oriented x3 Extrem General: normal to inspection Other: no calf swelling or tenderness Course Vital Signs Vital signs: Vital Signs Temperature 36.7 C 09/09/22 10:11 Pulse 88 09/09/22 10:11 Respiratory Rate 24 09/09/22 10:11 Blood Pressure 137/88 09/09/22 10:11 Pulse Oximetry 97 09/09/22 10:11 Temperature 36.7 C 09/09/22 13:05 Temperature Source Oral 09/09/22 13:05 Pulse 87 09/09/22 15:45 Pulse 85 09/09/22 15:31 Respiratory Rate 20 09/09/22 15:45 Respiratory Effort Short of Breath 09/09/22 10:56 Respiratory Depth Normal 09/09/22 10:53 Blood Pressure 140/80 09/09/22 15:45 Blood Pressure Mean 92 09/09/22 15:31 Pulse Oximetry 96 09/09/22 15:45 Oxygen Delivery Method Nasal Cannula 09/09/22 15:45 Oxygen Flow Rate 3 09/09/22 15:45 Pain Level 6 09/09/22 13:05 Lab/Test Results Lab/Test Results: Laboratory Tests Range/Units 09/09/22 09/09/22 09/09/22 10:59 10:59 10:59 WBC (4.4-10.8) 10^3/uL 5.89 RBC (3.93-5.22) 10^6/uL 3.99 Hgb (11.2-15.7) g/dL 12.0 Hct (36.0-46.0) % 37.5 MCV (80-95) fL 94 MCH (27.0-33.0) pg 30.1 MCHC (32.0-36.0) % 32.0 RDW (11.7-14.6) % 16.5 H Plt Count (130-400) 10^3/uL 284 MPV (8.0-11.0) fL 8.7 Immature Gran % 0.8 Neutrophils % 73.6 Lymphocytes % 11.9 Monocytes % 12.7 Eosinophils % 0.7 Basophils % 0.3 Nucleated RBC % (0.0-0.3) % 0.0 Absolute Neutrophils (1.2-6.7) 10^3/uL 4.33 Absolute Lymphocytes (1.2-3.4) 10^3/uL 0.70 L Absolute Monocytes (0.1-0.8) 10^3/uL 0.75 Absolute Eosinophils (0.0-0.7) 10^3/uL 0.04 Absolute Basophils (0.0-0.2) 10^3/uL 0.02 PT (9.3-11.0) sec 9.5 INR (0.9-1.1) 0.9 Sodium (136-145) mmol/L 141 Potassium (3.5-5.1) mmol/L 4.0 Chloride (98-107) mmol/L 101 Carbon Dioxide (21.0-32.0) mmol/L 34.1 H Anion Gap (3-11) mmol/L 5.9 BUN (7-18) mg/dL 10 Creatinine (0.55-1.02) mg/dL 0.6 Est GFR (CKD-EPI 2020) (mL/min/1.73m2) 101.42 Glucose (74-106) mg/dL 96 Calcium (8.5-10.1) mg/dL 9.4 Magnesium (1.8-2.4) mg/dL 2.0 Total Bilirubin (0.2-1.0) mg/dL 0.4 AST (15-37) U/L 22 ALT (14-59) U/L 36 Alkaline Phosphatase (46-116) U/L 65 Troponin I (<or=60) ng/L < 50 Total Protein (6.4-8.2) g/dL 7.1 Albumin (3.4-5.0) g/dL 3.6 COVID-19 Source SARS-CoV-2 (PCR) (Negative) Influenza Type A (PCR) (Negative) Influenza Type B (PCR) (Negative) RSV (PCR) (Negative) Range/Units 09/09/22 09/09/22 14:01 14:02 WBC (4.4-10.8) 10^3/uL RBC (3.93-5.22) 10^6/uL Hgb (11.2-15.7) g/dL Hct (36.0-46.0) % MCV (80-95) fL MCH (27.0-33.0) pg MCHC (32.0-36.0) % RDW (11.7-14.6) % Plt Count (130-400) 10^3/uL MPV (8.0-11.0) fL Immature Gran % Neutrophils % Lymphocytes % Monocytes % Eosinophils % Basophils % Nucleated RBC % (0.0-0.3) % Absolute Neutrophils (1.2-6.7) 10^3/uL Absolute Lymphocytes (1.2-3.4) 10^3/uL Absolute Monocytes (0.1-0.8) 10^3/uL Absolute Eosinophils (0.0-0.7) 10^3/uL Absolute Basophils (0.0-0.2) 10^3/uL PT (9.3-11.0) sec INR (0.9-1.1) Sodium (136-145) mmol/L Potassium (3.5-5.1) mmol/L Chloride (98-107) mmol/L Carbon Dioxide (21.0-32.0) mmol/L Anion Gap (3-11) mmol/L BUN (7-18) mg/dL Creatinine (0.55-1.02) mg/dL Est GFR (CKD-EPI 2020) (mL/min/1.73m2) Glucose (74-106) mg/dL Calcium (8.5-10.1) mg/dL Magnesium (1.8-2.4) mg/dL Total Bilirubin (0.2-1.0) mg/dL AST (15-37) U/L ALT (14-59) U/L Alkaline Phosphatase (46-116) U/L Troponin I (<or=60) ng/L < 50 Total Protein (6.4-8.2) g/dL Albumin (3.4-5.0) g/dL COVID-19 Source Nasopharynx SARS-CoV-2 (PCR) (Negative) Negative Influenza Type A (PCR) (Negative) Negative Influenza Type B (PCR) (Negative) Negative RSV (PCR) (Negative) Negative
== END 2022-09-09 15:50 | disposition home or self-care (01) ==
PROVIDERS: Emergency Provider Physician Assistant; PCP Neuromusculoskeletal Medicine & OMM
DX: R04.2 Hemoptysis; R07.9 Chest pain, unspecified; Z20.822 Contact with and (suspected) exposure to COVID-19
CPT/HCPCS: 36415; 71275; 80053; 87637; 93005; 99285; 83735; 84484; 85025; 85610; 93010; J0131; J3490; J7613

== ENCOUNTER 2022-09-20 02:33 | Outpatient (CLI) | payer MEDICARE, BC, SELFPAY ==
[2022-09-20 10:24] LABS: Abs Immature Grans 0.12 10^3/uL (0.0-0.06); Absolute Basophil Count 0.03 10^3/uL (0.0-0.2); Absolute Eosinophil Count 0.08 10^3/uL (0.0-0.7); Absolute Lymphocyte Count 0.82 10^3/uL (1.2-3.4); Absolute Neutrophil Count 7.34 10^3/uL (1.2-6.7); Basophils % 0.3; Eosinophils % 0.9; HCT 37.1 % (36.0-46.0); HGB 11.5 g/dL (11.2-15.7); Immature Grans % 1.3; Lymphocytes % 8.8; MCH 29.5 pg (27.0-33.0); MCV 95 fL (80-95); MPV 8.5 fL (8.0-11.0); Monocytes % 9.7; Platelet Count 344 10^3/uL (130-400); RDW 16.3 % (11.7-14.6); RDW-SD 57.8 fL; WBC 9.29 10^3/uL (4.4-10.8)
[2022-09-20 10:48] LABS: ALT 44 U/L (14-59); AST 23 U/L (15-37); Albumin 3.6 g/dL (3.4-5.0); Alkaline Phosphatase 66 U/L (46-116); Anion Gap 5.5 mmol/L (3-11); BUN 14 mg/dL (7-18); Bilirubin, Total 0.3 mg/dL (0.2-1.0); CO2 34.5 mmol/L (21.0-32.0); CREATININE 0.6 mg/dL (0.55-1.02); Calcium 9.3 mg/dL (8.5-10.1); Chloride 102 mmol/L (98-107); Estimated GFR 101.42 (mL/min/1.73m2); FREE T4 1.08 ng/dL (0.76-1.46); Glucose 122 mg/dL (74-106); Magnesium 1.7 mg/dL (1.8-2.4); Potassium 3.6 mmol/L (3.5-5.1); Sodium 142 mmol/L (136-145); TSH 1.21 uIU/mL (0.36-3.74); Total Protein 7.1 g/dL (6.4-8.2)
== END 2022-09-20 02:34 | disposition home or self-care (01) ==
PROVIDERS: PCP Neuromusculoskeletal Medicine & OMM; Visit Provider Internal Medicine Medical Oncology
DX: Z79.899 Other long term (current) drug therapy (principal); C34.32 Malignant neoplasm of lower lobe, left bronchus or lung
CPT/HCPCS: 36415; 80053; 83735; 84439; 84443; 85025; 93970

== ENCOUNTER 2022-09-20 12:05 | Outpatient (CLI) | payer MEDICARE, BC, SELFPAY ==
--- NOTE | 2022-09-20 | DI.US_ITS ---
Exam(s) US EXTREMITY VENOUS BI EXAM: US EXTREMITY VENOUS BI CLINICAL HISTORY: EDEMA OF LOWER EXTREMITY, R60.0, LOWER EXTREMITY SWELLING, DYSPNEA. TECHNIQUE: Bilateral lower extremity venous ultrasound performed using grayscale, color-flow, and sp ectral Doppler analysis. COMPARISON: No exams were available for comparison FINDINGS: The bilateral common femoral, femoral and popliteal veins demonstrate normal compressibility, augment ation, and color Doppler. The posterior tibial veins are patent. IMPRESSION: Right: Negative for DVT Left: Negative for DVT DATA REPOSITORY:
== END 2022-09-20 12:25 ==
LOC: DI 12:06
PROVIDERS: PCP Neuromusculoskeletal Medicine & OMM; Visit Provider Internal Medicine Pulmonary Disease
DX: R60.0 Localized edema (principal)
CPT/HCPCS: 93970

== ENCOUNTER 2022-10-11 03:14 | Outpatient (CLI) | payer MEDICARE, BC, SELFPAY ==
[2022-10-11 12:41] LABS: Abs Immature Grans 0.16 10^3/uL (0.0-0.06); Absolute Basophil Count 0.03 10^3/uL (0.0-0.2); Absolute Eosinophil Count 0.05 10^3/uL (0.0-0.7); Absolute Lymphocyte Count 0.76 10^3/uL (1.2-3.4); Absolute Monocyte Count 0.53 10^3/uL (0.1-0.8); Basophils % 0.2; Eosinophils % 0.4; HCT 41.2 % (36.0-46.0); HGB 12.9 g/dL (11.2-15.7); Immature Grans % 1.2; Lymphocytes % 5.7; MCH 29.5 pg (27.0-33.0); MCHC 31.3 % (32.0-36.0); MCV 94 fL (80-95); MPV 8.7 fL (8.0-11.0); Neutrophils % 88.5; Platelet Count 342 10^3/uL (130-400); RBC 4.37 10^6/uL (3.93-5.22); RDW 14.6 % (11.7-14.6); RDW-SD 51.2 fL; WBC 13.33 10^3/uL (4.4-10.8)
[2022-10-11 13:05] LABS: ALT 45 U/L (14-59); AST 25 U/L (15-37); Albumin 3.7 g/dL (3.4-5.0); Alkaline Phosphatase 73 U/L (46-116); Anion Gap 6.3 mmol/L (3-11); BUN 14 mg/dL (7-18); Bilirubin, Total 0.2 mg/dL (0.2-1.0); CO2 33.7 mmol/L (21.0-32.0); CREATININE 0.7 mg/dL (0.55-1.02); Calcium 9.3 mg/dL (8.5-10.1); Chloride 99 mmol/L (98-107); Estimated GFR 97.72 (mL/min/1.73m2); FREE T4 1.15 ng/dL (0.76-1.46); Glucose 128 mg/dL (74-106); Magnesium 1.9 mg/dL (1.8-2.4); Potassium 3.7 mmol/L (3.5-5.1); Sodium 139 mmol/L (136-145); TSH 0.69 uIU/mL (0.36-3.74); Total Protein 7.5 g/dL (6.4-8.2)
== END 2022-10-11 03:15 | disposition home or self-care (01) ==
LOC: LBO 03:14
PROVIDERS: PCP Neuromusculoskeletal Medicine & OMM; Visit Provider Internal Medicine Medical Oncology
DX: C34.32 Malignant neoplasm of lower lobe, left bronchus or lung (principal); Z79.899 Other long term (current) drug therapy
CPT/HCPCS: 36415; 80053; 83735; 84439; 84443; 85025

== ENCOUNTER 2022-11-01 02:42 | Outpatient (CLI) | payer MEDICARE, SELFPAY ==
[2022-11-01 12:12] LABS: Abs Immature Grans 0.14 10^3/uL (0.0-0.06); Absolute Basophil Count 0.04 10^3/uL (0.0-0.2); Absolute Eosinophil Count 0.06 10^3/uL (0.0-0.7); Absolute Monocyte Count 0.64 10^3/uL (0.1-0.8); Basophils % 0.3; Eosinophils % 0.5; HCT 40.9 % (36.0-46.0); Immature Grans % 1.2; Lymphocytes % 6.8; MCHC 31.8 % (32.0-36.0); MCV 91 fL (80-95); MPV 8.8 fL (8.0-11.0); Monocytes % 5.3; Neutrophils % 85.9; Platelet Count 295 10^3/uL (130-400); RBC 4.49 10^6/uL (3.93-5.22); RDW 14.3 % (11.7-14.6); RDW-SD 48.1 fL; WBC 11.99 10^3/uL (4.4-10.8)
[2022-11-01 12:15] LABS: Absolute Lymphocyte Count 0.82 10^3/uL (1.2-3.4)
[2022-11-01 12:38] LABS: ALT 38 U/L (14-59); AST 20 U/L (15-37); Albumin 3.8 g/dL (3.4-5.0); Alkaline Phosphatase 69 U/L (46-116); Anion Gap 5.4 mmol/L (3-11); BUN 13 mg/dL (7-18); Bilirubin, Total 0.4 mg/dL (0.2-1.0); CO2 34.6 mmol/L (21.0-32.0); CREATININE 0.8 mg/dL (0.55-1.02); Calcium 9.6 mg/dL (8.5-10.1); Chloride 100 mmol/L (98-107); Estimated GFR 83.26 (mL/min/1.73m2); FREE T4 1.19 ng/dL (0.76-1.46); Glucose 118 mg/dL (74-106); Magnesium 1.9 mg/dL (1.8-2.4); Potassium 4.1 mmol/L (3.5-5.1); Sodium 140 mmol/L (136-145); TSH 0.56 uIU/mL (0.36-3.74); Total Protein 7.7 g/dL (6.4-8.2)
== END 2022-11-01 02:43 | disposition home or self-care (01) ==
PROVIDERS: PCP Neuromusculoskeletal Medicine & OMM; Visit Provider Internal Medicine Medical Oncology
DX: C34.32 Malignant neoplasm of lower lobe, left bronchus or lung (principal); Z79.899 Other long term (current) drug therapy
CPT/HCPCS: 36415; 80053; 83735; 84439; 84443; 85025

== ENCOUNTER 2022-11-17 10:55 | Outpatient (CLI) | payer MEDICARE, SELFPAY ==
[2022-11-17 09:46] LABS: Abs Immature Grans 0.18 10^3/uL (0.0-0.06); Absolute Basophil Count 0.04 10^3/uL (0.0-0.2); Absolute Eosinophil Count 0.08 10^3/uL (0.0-0.7); Absolute Monocyte Count 1.17 10^3/uL (0.1-0.8); Absolute Neutrophil Count 8.62 10^3/uL (1.2-6.7); Basophils % 0.4; Eosinophils % 0.7; HCT 38.3 % (36.0-46.0); HGB 12.4 g/dL (11.2-15.7); Immature Grans % 1.7; Lymphocytes % 7.3; MCH 29.4 pg (27.0-33.0); MCHC 32.4 % (32.0-36.0); MCV 91 fL (80-95); MPV 8.3 fL (8.0-11.0); Monocytes % 10.7; Neutrophils % 79.2; Platelet Count 411 10^3/uL (130-400); RBC 4.22 10^6/uL (3.93-5.22); RDW 14.2 % (11.7-14.6); RDW-SD 46.5 fL; WBC 10.89 10^3/uL (4.4-10.8)
[2022-11-17 09:48] LABS: Absolute Lymphocyte Count 0.79 10^3/uL (1.2-3.4)
[2022-11-17 10:14] LABS: ALT 65 U/L (14-59); AST 31 U/L (15-37); Albumin 3.5 g/dL (3.4-5.0); Alkaline Phosphatase 82 U/L (46-116); Anion Gap 3.8 mmol/L (3-11); BUN 15 mg/dL (7-18); Bilirubin, Total 0.4 mg/dL (0.2-1.0); CO2 35.2 mmol/L (21.0-32.0); CREATININE 0.7 mg/dL (0.55-1.02); Calcium 9.4 mg/dL (8.5-10.1); Chloride 101 mmol/L (98-107); Estimated GFR 97.72 (mL/min/1.73m2); FREE T4 1.22 ng/dL (0.76-1.46); Glucose 108 mg/dL (74-106); Magnesium 1.9 mg/dL (1.8-2.4); Sodium 140 mmol/L (136-145); TSH 0.83 uIU/mL (0.36-3.74); Total Protein 7.6 g/dL (6.4-8.2)
== END 2022-11-17 10:56 | disposition home or self-care (01) ==
LOC: LBO 11:00
PROVIDERS: PCP Neuromusculoskeletal Medicine & OMM; Visit Provider Internal Medicine Medical Oncology
DX: C34.32 Malignant neoplasm of lower lobe, left bronchus or lung (principal); Z79.899 Other long term (current) drug therapy
CPT/HCPCS: 36415; 80053; 83735; 84439; 84443; 85025

== ENCOUNTER 2022-11-29 13:54 | Outpatient (CLI) | payer MEDICARE, SELFPAY ==
[2022-11-29 12:19] LABS: Abs Immature Grans 0.13 10^3/uL (0.0-0.06); Absolute Basophil Count 0.03 10^3/uL (0.0-0.2); Absolute Monocyte Count 0.79 10^3/uL (0.1-0.8); Basophils % 0.2; HCT 36.2 % (36.0-46.0); HGB 11.8 g/dL (11.2-15.7); MCH 29.6 pg (27.0-33.0); MCHC 32.6 % (32.0-36.0); MCV 91 fL (80-95); MPV 9.1 fL (8.0-11.0); Monocytes % 6.2; Neutrophils % 89.6; Platelet Count 249 10^3/uL (130-400); RBC 3.99 10^6/uL (3.93-5.22); RDW 14.6 % (11.7-14.6); RDW-SD 47.8 fL; WBC 12.82 10^3/uL (4.4-10.8)
[2022-11-29 12:20] LABS: Absolute Lymphocyte Count 0.38 10^3/uL (1.2-3.4); Absolute Neutrophil Count 11.49 10^3/uL (1.2-6.7)
[2022-11-29 12:28] LABS: ALT 48 U/L (14-59); AST 21 U/L (15-37); Albumin 3.3 g/dL (3.4-5.0); Alkaline Phosphatase 82 U/L (46-116); Anion Gap 4.2 mmol/L (3-11); BUN 13 mg/dL (7-18); Bilirubin, Total 0.3 mg/dL (0.2-1.0); CO2 34.8 mmol/L (21.0-32.0); CREATININE 0.7 mg/dL (0.55-1.02); Calcium 9.3 mg/dL (8.5-10.1); Chloride 102 mmol/L (98-107); Estimated GFR 97.72 (mL/min/1.73m2); FREE T4 1.35 ng/dL (0.76-1.46); Glucose 131 mg/dL (74-106); Magnesium 1.9 mg/dL (1.8-2.4); Sodium 141 mmol/L (136-145); Total Protein 7.4 g/dL (6.4-8.2)
== END 2022-11-29 13:55 | disposition home or self-care (01) ==
PROVIDERS: PCP Neuromusculoskeletal Medicine & OMM; Visit Provider Internal Medicine Medical Oncology
DX: C34.32 Malignant neoplasm of lower lobe, left bronchus or lung (principal); Z79.899 Other long term (current) drug therapy
CPT/HCPCS: 36415; 80053; 83735; 84439; 84443; 85025

== ENCOUNTER 2022-12-15 12:17 | Outpatient (CLI) | payer MEDICARE, SELFPAY ==
[2022-12-15 09:46] LABS: Abs Immature Grans 0.13 10^3/uL (0.0-0.06); Absolute Monocyte Count 0.93 10^3/uL (0.1-0.8); Basophils % 0.2; Eosinophils % 0.2; HCT 34.2 % (36.0-46.0); HGB 11.1 g/dL (11.2-15.7); Immature Grans % 1.1; Lymphocytes % 4.2; MCH 29.3 pg (27.0-33.0); MCHC 32.5 % (32.0-36.0); MCV 90 fL (80-95); MPV 8.4 fL (8.0-11.0); Monocytes % 7.6; Neutrophils % 86.7; Platelet Count 442 10^3/uL (130-400); RBC 3.79 10^6/uL (3.93-5.22); RDW 14.6 % (11.7-14.6); RDW-SD 48.1 fL; WBC 12.26 10^3/uL (4.4-10.8)
[2022-12-15 09:49] LABS: Absolute Basophil Count 0.02 10^3/uL (0.0-0.2); Absolute Eosinophil Count 0.02 10^3/uL (0.0-0.7); Absolute Lymphocyte Count 0.51 10^3/uL (1.2-3.4); Absolute Neutrophil Count 10.63 10^3/uL (1.2-6.7)
[2022-12-15 10:10] LABS: ALT 36 U/L (14-59); AST 18 U/L (15-37); Albumin 3.4 g/dL (3.4-5.0); Alkaline Phosphatase 75 U/L (46-116); Anion Gap 2.8 mmol/L (3-11); BUN 11 mg/dL (7-18); Bilirubin, Total 0.4 mg/dL (0.2-1.0); CO2 34.2 mmol/L (21.0-32.0); CREATININE 0.8 mg/dL (0.55-1.02); Calcium 9.2 mg/dL (8.5-10.1); Chloride 100 mmol/L (98-107); Estimated GFR 83.26 (mL/min/1.73m2); FREE T4 1.35 ng/dL (0.76-1.46); Glucose 121 mg/dL (74-106); Magnesium 1.7 mg/dL (1.8-2.4); Potassium 3.6 mmol/L (3.5-5.1); Sodium 137 mmol/L (136-145); TSH 0.68 uIU/mL (0.36-3.74); Total Protein 7.4 g/dL (6.4-8.2)
== END 2022-12-15 12:18 | disposition home or self-care (01) ==
LOC: LBO 12:18
PROVIDERS: PCP Neuromusculoskeletal Medicine & OMM; Visit Provider Internal Medicine Medical Oncology
DX: C34.32 Malignant neoplasm of lower lobe, left bronchus or lung (principal); Z79.899 Other long term (current) drug therapy
CPT/HCPCS: 36415; 80053; 83735; 84439; 84443; 85025

== ENCOUNTER 2023-01-03 15:35 | Outpatient (CLI) | payer MEDICARE, SELFPAY ==
[2023-01-03 13:48] LABS: Abs Immature Grans 0.22 10^3/uL (0.0-0.06); Absolute Basophil Count 0.05 10^3/uL (0.0-0.2); Absolute Eosinophil Count 0.01 10^3/uL (0.0-0.7); Absolute Lymphocyte Count 0.47 10^3/uL (1.2-3.4); Absolute Monocyte Count 0.56 10^3/uL (0.1-0.8); Absolute Neutrophil Count 12.09 10^3/uL (1.2-6.7); Basophils % 0.4; Eosinophils % 0.1; HCT 38.2 % (36.0-46.0); HGB 12.1 g/dL (11.2-15.7); Immature Grans % 1.6; Lymphocytes % 3.5; MCHC 31.7 % (32.0-36.0); MCV 92 fL (80-95); MPV 8.7 fL (8.0-11.0); Monocytes % 4.2; Neutrophils % 90.2; Platelet Count 460 10^3/uL (130-400); RBC 4.17 10^6/uL (3.93-5.22); RDW 15.3 % (11.7-14.6); RDW-SD 50.8 fL
[2023-01-03 14:21] LABS: ALT 43 U/L (14-59); AST 22 U/L (15-37); Albumin 3.5 g/dL (3.4-5.0); Alkaline Phosphatase 81 U/L (46-116); Anion Gap 3.2 mmol/L (3-11); BUN 13 mg/dL (7-18); Bilirubin, Total 0.3 mg/dL (0.2-1.0); CO2 33.8 mmol/L (21.0-32.0); CREATININE 0.7 mg/dL (0.55-1.02); Calcium 9.1 mg/dL (8.5-10.1); Chloride 98 mmol/L (98-107); Estimated GFR 97.72 (mL/min/1.73m2); FREE T4 1.19 ng/dL (0.76-1.46); Glucose 162 mg/dL (74-106); Magnesium 1.9 mg/dL (1.8-2.4); Potassium 3.9 mmol/L (3.5-5.1); Sodium 135 mmol/L (136-145); TSH 0.71 uIU/mL (0.36-3.74); Total Protein 7.5 g/dL (6.4-8.2)
== END 2023-01-03 15:36 | disposition home or self-care (01) ==
LOC: LBO 15:39
PROVIDERS: PCP Neuromusculoskeletal Medicine & OMM; Visit Provider Internal Medicine Medical Oncology
DX: C34.32 Malignant neoplasm of lower lobe, left bronchus or lung (principal); Z79.899 Other long term (current) drug therapy
CPT/HCPCS: 36415; 80053; 83735; 84439; 84443; 85025

== ENCOUNTER 2023-01-24 03:15 | Outpatient (CLI) | payer MEDICARE, SELFPAY ==
[2023-01-24 13:08] LABS: Abs Immature Grans 0.13 10^3/uL (0.0-0.06); Absolute Basophil Count 0.05 10^3/uL (0.0-0.2); Absolute Eosinophil Count 0.02 10^3/uL (0.0-0.7); Absolute Monocyte Count 0.53 10^3/uL (0.1-0.8); Absolute Neutrophil Count 9.44 10^3/uL (1.2-6.7); Basophils % 0.5; Eosinophils % 0.2; HCT 37.3 % (36.0-46.0); HGB 11.9 g/dL (11.2-15.7); Immature Grans % 1.2; Lymphocytes % 6.4; MCH 29.3 pg (27.0-33.0); MCHC 31.9 % (32.0-36.0); MCV 92 fL (80-95); MPV 8.6 fL (8.0-11.0); Monocytes % 4.9; Neutrophils % 86.8; Platelet Count 432 10^3/uL (130-400); RBC 4.06 10^6/uL (3.93-5.22); RDW 14.8 % (11.7-14.6); RDW-SD 50.5 fL; WBC 10.87 10^3/uL (4.4-10.8)
[2023-01-24 13:32] LABS: ALT 44 U/L (14-59); AST 21 U/L (15-37); Albumin 3.5 g/dL (3.4-5.0); Alkaline Phosphatase 76 U/L (46-116); Anion Gap 5.5 mmol/L (3-11); BUN 13 mg/dL (7-18); Bilirubin, Total 0.3 mg/dL (0.2-1.0); CO2 34.5 mmol/L (21.0-32.0); CREATININE 0.7 mg/dL (0.55-1.02); Chloride 99 mmol/L (98-107); Estimated GFR 97.72 (mL/min/1.73m2); FREE T4 1.24 ng/dL (0.76-1.46); Glucose 146 mg/dL (74-106); Magnesium 1.9 mg/dL (1.8-2.4); Potassium 4.1 mmol/L (3.5-5.1); Sodium 139 mmol/L (136-145); Total Protein 7.7 g/dL (6.4-8.2)
== END 2023-01-24 03:16 | disposition home or self-care (01) ==
LOC: LBO 03:15
PROVIDERS: PCP Neuromusculoskeletal Medicine & OMM; Visit Provider Internal Medicine Medical Oncology
DX: C34.32 Malignant neoplasm of lower lobe, left bronchus or lung (principal); Z79.899 Other long term (current) drug therapy
CPT/HCPCS: 36415; 80053; 83735; 84439; 84443; 85025

== ENCOUNTER 2023-02-28 01:59 | Outpatient (RCR) | payer MEDICARE, SELFPAY ==
[2023-02-28] MEDS: Normal Saline Flush 10 ML SYR IVP (08:38)
[2023-02-28 09:10] LABS: Abs Immature Grans 0.41 10^3/uL (0.0-0.06); Absolute Basophil Count 0.07 10^3/uL (0.0-0.2); Absolute Monocyte Count 1.16 10^3/uL (0.1-0.8); Basophils % 0.5; Eosinophils % 0.3; HCT 38.2 % (36.0-46.0); Immature Grans % 2.8; Lymphocytes % 8.8; MCH 28.2 pg (27.0-33.0); MCHC 31.4 % (32.0-36.0); MCV 90 fL (80-95); Monocytes % 7.9; Neutrophils % 79.7; Platelet Count 315 10^3/uL (130-400); RBC 4.25 10^6/uL (3.93-5.22); RDW 14.2 % (11.7-14.6); WBC 14.72 10^3/uL (4.4-10.8)
[2023-02-28 09:14] LABS: Absolute Eosinophil Count 0.04 10^3/uL (0.0-0.7); Absolute Neutrophil Count 11.73 10^3/uL (1.2-6.7)
[2023-02-28 09:33] LABS: ALT 44 U/L (14-59); AST 23 U/L (15-37); Albumin 3.3 g/dL (3.4-5.0); Alkaline Phosphatase 72 U/L (46-116); Anion Gap 5.4 mmol/L (3-11); BUN 12 mg/dL (7-18); Bilirubin, Total 0.3 mg/dL (0.2-1.0); CO2 34.6 mmol/L (21.0-32.0); CREATININE 0.7 mg/dL (0.55-1.02); Calcium 9.1 mg/dL (8.5-10.1); Chloride 100 mmol/L (98-107); Estimated GFR 97.72 (mL/min/1.73m2); FREE T4 1.19 ng/dL (0.76-1.46); Glucose 113 mg/dL (74-106); Magnesium 1.8 mg/dL (1.8-2.4); Potassium 3.8 mmol/L (3.5-5.1); Sodium 140 mmol/L (136-145); TSH 0.97 uIU/mL (0.36-3.74); Total Protein 7.1 g/dL (6.4-8.2)
== END 2023-02-28 23:59 | disposition home or self-care (01) ==
LOC: INF 01:59
PROVIDERS: PCP Neuromusculoskeletal Medicine & OMM; Visit Provider Internal Medicine Medical Oncology
DX: Z79.899 Other long term (current) drug therapy (principal); Z45.2 Encounter for adjustment and management of vascular access device; C34.32 Malignant neoplasm of lower lobe, left bronchus or lung
CPT/HCPCS: 36591; 80053; 83735; 84439; 84443; 85025

== ENCOUNTER 2023-03-21 04:29 | Outpatient (CLI) | payer MEDICARE, SELFPAY ==
[2023-03-21 10:25] LABS: Abs Immature Grans 0.27 10^3/uL (0.0-0.06); Absolute Eosinophil Count 0.08 10^3/uL (0.0-0.7); Absolute Lymphocyte Count 0.58 10^3/uL (1.2-3.4); Absolute Monocyte Count 0.92 10^3/uL (0.1-0.8); Basophils % 0.3; Eosinophils % 0.5; HCT 35.2 % (36.0-46.0); HGB 11.3 g/dL (11.2-15.7); Immature Grans % 1.8; Lymphocytes % 3.8; MCH 28.2 pg (27.0-33.0); MCHC 32.1 % (32.0-36.0); MCV 88 fL (80-95); Neutrophils % 87.6; Platelet Count 352 10^3/uL (130-400); RBC 4.01 10^6/uL (3.93-5.22); RDW 14.7 % (11.7-14.6); RDW-SD 47.8 fL; WBC 15.31 10^3/uL (4.4-10.8)
[2023-03-21 10:26] LABS: Absolute Basophil Count 0.05 10^3/uL (0.0-0.2); Absolute Neutrophil Count 13.41 10^3/uL (1.2-6.7)
[2023-03-21 10:44] LABS: ALT 51 U/L (14-59); AST 24 U/L (15-37); Albumin 3.2 g/dL (3.4-5.0); Alkaline Phosphatase 81 U/L (46-116); Anion Gap 4.8 mmol/L (3-11); BUN 13 mg/dL (7-18); Bilirubin, Total 0.4 mg/dL (0.2-1.0); CO2 35.2 mmol/L (21.0-32.0); CREATININE 0.7 mg/dL (0.55-1.02); Calcium 9.4 mg/dL (8.5-10.1); Chloride 99 mmol/L (98-107); Estimated GFR 97.72 (mL/min/1.73m2); FREE T4 1.22 ng/dL (0.76-1.46); Glucose 129 mg/dL (74-106); Magnesium 2.1 mg/dL (1.8-2.4); Potassium 3.9 mmol/L (3.5-5.1); Sodium 139 mmol/L (136-145); TSH 0.97 uIU/mL (0.36-3.74); Total Protein 7.3 g/dL (6.4-8.2)
== END 2023-03-21 04:30 | disposition home or self-care (01) ==
LOC: LBO 04:29
PROVIDERS: PCP Neuromusculoskeletal Medicine & OMM; Visit Provider Internal Medicine Medical Oncology
DX: C34.32 Malignant neoplasm of lower lobe, left bronchus or lung (principal); Z79.899 Other long term (current) drug therapy
CPT/HCPCS: 80053; 83735; 84439; 84443; 85025

== ENCOUNTER 2023-03-21 16:06 | Outpatient (RCR) | payer MEDICARE, SELFPAY | END 2023-03-31 23:59 | disposition home or self-care (01) | LOC: INF 16:06 | PROVIDERS: PCP Neuromusculoskeletal Medicine & OMM; Visit Provider Internal Medicine Medical Oncology | DX: C34.32 Malignant neoplasm of lower lobe, left bronchus or lung (principal); Z79.899 Other long term (current) drug therapy; Z45.2 Encounter for adjustment and management of vascular access device | CPT/HCPCS: 36591 ==

== ENCOUNTER 2023-04-11 01:42 | Outpatient (RCR) | payer MEDICARE, SELFPAY ==
[2023-04-11] MEDS: Normal Saline Flush 10 ML SYR IVP (09:09)
[2023-04-11 10:03] LABS: Abs Immature Grans 0.13 10^3/uL (0.0-0.06); Absolute Basophil Count 0.05 10^3/uL (0.0-0.2); Absolute Eosinophil Count 0.03 10^3/uL (0.0-0.7); Absolute Lymphocyte Count 0.68 10^3/uL (1.2-3.4); Absolute Monocyte Count 1.27 10^3/uL (0.1-0.8); Absolute Neutrophil Count 10.76 10^3/uL (1.2-6.7); Basophils % 0.4; Eosinophils % 0.2; HCT 35.9 % (36.0-46.0); HGB 11.3 g/dL (11.2-15.7); Lymphocytes % 5.3; MCH 27.4 pg (27.0-33.0); MCHC 31.5 % (32.0-36.0); MCV 87 fL (80-95); MPV 9.3 fL (8.0-11.0); Monocytes % 9.8; Neutrophils % 83.3; Platelet Count 413 10^3/uL (130-400); RBC 4.12 10^6/uL (3.93-5.22); RDW 16.6 % (11.7-14.6); RDW-SD 52.5 fL; WBC 12.92 10^3/uL (4.4-10.8)
[2023-04-11 10:26] LABS: ALT 36 U/L (14-59); AST 27 U/L (15-37); Albumin 2.8 g/dL (3.4-5.0); Alkaline Phosphatase 56 U/L (46-116); Anion Gap 3.4 mmol/L (3-11); BUN 16 mg/dL (7-18); Bilirubin, Total 0.3 mg/dL (0.2-1.0); CO2 33.6 mmol/L (21.0-32.0); CREATININE 0.7 mg/dL (0.55-1.02); Calcium 9.2 mg/dL (8.5-10.1); Chloride 98 mmol/L (98-107); Estimated GFR 97.72 (mL/min/1.73m2); FREE T4 1.34 ng/dL (0.76-1.46); Glucose 195 mg/dL (74-106); Magnesium 1.7 mg/dL (1.8-2.4); Potassium 3.5 mmol/L (3.5-5.1); Sodium 135 mmol/L (136-145); TSH 0.56 uIU/mL (0.36-3.74); Total Protein 6.8 g/dL (6.4-8.2)
== END 2023-04-30 23:59 | disposition home or self-care (01) ==
LOC: INF 01:42
PROVIDERS: PCP Neuromusculoskeletal Medicine & OMM; Visit Provider Internal Medicine Medical Oncology
DX: C34.32 Malignant neoplasm of lower lobe, left bronchus or lung (principal); Z79.899 Other long term (current) drug therapy; Z45.2 Encounter for adjustment and management of vascular access device
CPT/HCPCS: 36591; 80053; 83735; 84439; 84443; 85025

== ENCOUNTER 2023-05-23 03:21 | Outpatient (RCR) | payer MEDICARE, SELFPAY ==
[2023-05-02] MEDS: Normal Saline Flush 10 ML SYR IVP (09:13)
[2023-05-02 09:27] LABS: Abs Immature Grans 0.18 10^3/uL (0.0-0.06); Absolute Basophil Count 0.03 10^3/uL (0.0-0.2); Absolute Eosinophil Count 0.17 10^3/uL (0.0-0.7); Basophils % 0.2; Eosinophils % 1.1; HCT 34.9 % (36.0-46.0); HGB 10.8 g/dL (11.2-15.7); Immature Grans % 1.1; Lymphocytes % 5.5; MCH 26.9 pg (27.0-33.0); MCHC 30.9 % (32.0-36.0); MCV 87 fL (80-95); Monocytes % 7.8; Neutrophils % 84.3; Platelet Count 410 10^3/uL (130-400); RBC 4.02 10^6/uL (3.93-5.22); RDW 15.9 % (11.7-14.6); RDW-SD 51.3 fL; WBC 15.73 10^3/uL (4.4-10.8)
[2023-05-02 09:28] LABS: Absolute Lymphocyte Count 0.87 10^3/uL (1.2-3.4); Absolute Monocyte Count 1.23 10^3/uL (0.1-0.8); Absolute Neutrophil Count 13.26 10^3/uL (1.2-6.7)
[2023-05-02 09:53] LABS: ALT 40 U/L (14-59); AST 24 U/L (15-37); Albumin 2.8 g/dL (3.4-5.0); Alkaline Phosphatase 74 U/L (46-116); Anion Gap 5.1 mmol/L (3-11); BUN 15 mg/dL (7-18); Bilirubin, Total 0.5 mg/dL (0.2-1.0); CO2 32.9 mmol/L (21.0-32.0); CREATININE 0.9 mg/dL (0.55-1.02); Calcium 10.1 mg/dL (8.5-10.1); Chloride 95 mmol/L (98-107); Estimated GFR 72.28 (mL/min/1.73m2); FREE T4 1.39 ng/dL (0.76-1.46); Glucose 161 mg/dL (74-106); Magnesium 1.6 mg/dL (1.8-2.4); Potassium 3.4 mmol/L (3.5-5.1); Sodium 133 mmol/L (136-145); TSH 2.11 uIU/mL (0.36-3.74); Total Protein 7.1 g/dL (6.4-8.2)
[2023-05-23] MEDS: Normal Saline Flush 10 ML SYR IVP (10:43)
[2023-05-23 10:55] LABS: Abs Immature Grans 0.21 10^3/uL (0.0-0.06); Absolute Basophil Count 0.04 10^3/uL (0.0-0.2); Absolute Lymphocyte Count 0.57 10^3/uL (1.2-3.4); Basophils % 0.2; Eosinophils % 0.2; HCT 36.7 % (36.0-46.0); HGB 11.7 g/dL (11.2-15.7); Immature Grans % 1.2; Lymphocytes % 3.2; MCH 27.7 pg (27.0-33.0); MCHC 31.9 % (32.0-36.0); MCV 87 fL (80-95); MPV 8.8 fL (8.0-11.0); Monocytes % 6.7; Neutrophils % 88.5; Platelet Count 317 10^3/uL (130-400); RBC 4.22 10^6/uL (3.93-5.22); RDW 16.8 % (11.7-14.6); RDW-SD 53.9 fL; WBC 17.88 10^3/uL (4.4-10.8)
[2023-05-23 10:57] LABS: Absolute Eosinophil Count 0.04 10^3/uL (0.0-0.7); Absolute Neutrophil Count 15.82 10^3/uL (1.2-6.7)
[2023-05-23 11:20] LABS: ALT 48 U/L (14-59); AST 19 U/L (15-37); Albumin 2.9 g/dL (3.4-5.0); Alkaline Phosphatase 62 U/L (46-116); Anion Gap 3.8 mmol/L (3-11); BUN 25 mg/dL (7-18); Bilirubin, Total 0.4 mg/dL (0.2-1.0); CO2 32.2 mmol/L (21.0-32.0); CREATININE 0.6 mg/dL (0.55-1.02); Calcium 9.3 mg/dL (8.5-10.1); Chloride 98 mmol/L (98-107); Estimated GFR 101.42 (mL/min/1.73m2); FREE T4 1.33 ng/dL (0.76-1.46); Glucose 95 mg/dL (74-106); Magnesium 1.8 mg/dL (1.8-2.4); Potassium 3.9 mmol/L (3.5-5.1); Sodium 134 mmol/L (136-145); TSH 0.47 uIU/mL (0.36-3.74); Total Protein 6.7 g/dL (6.4-8.2)
== END 2023-05-31 23:59 | disposition home or self-care (01) ==
LOC: INF 03:21
PROVIDERS: Nurse Practitioner Family; PCP Neuromusculoskeletal Medicine & OMM; Visit Provider Internal Medicine Medical Oncology
DX: C34.32 Malignant neoplasm of lower lobe, left bronchus or lung (principal); Z45.2 Encounter for adjustment and management of vascular access device
CPT/HCPCS: 36591; 80053; 83735; 84439; 84443; 85025

== ENCOUNTER 2023-06-20 04:00 | Outpatient (RCR) | payer MEDICARE, SELFPAY ==
[2023-06-20] MEDS: Normal Saline Flush 10 ML SYR IVP (09:15)
[2023-06-20 09:32] LABS: Abs Immature Grans 0.41 10^3/uL (0.0-0.06); Absolute Basophil Count 0.08 10^3/uL (0.0-0.2); Absolute Lymphocyte Count 0.43 10^3/uL (1.2-3.4); Absolute Monocyte Count 0.25 10^3/uL (0.1-0.8); Basophils % 0.7; HGB 11.2 g/dL (11.2-15.7); Immature Grans % 3.8; MCH 27.3 pg (27.0-33.0); MCHC 31.1 % (32.0-36.0); MCV 88 fL (80-95); MPV 9.2 fL (8.0-11.0); Monocytes % 2.3; Neutrophils % 89.2; Platelet Count 302 10^3/uL (130-400); RDW 16.4 % (11.7-14.6); RDW-SD 52.9 fL; WBC 10.67 10^3/uL (4.4-10.8)
[2023-06-20 09:57] LABS: ALT 79 U/L (14-59); AST 36 U/L (15-37); Albumin 2.4 g/dL (3.4-5.0); Alkaline Phosphatase 79 U/L (46-116); Anion Gap 3.8 mmol/L (3-11); BUN 21 mg/dL (7-18); Bilirubin, Total 0.4 mg/dL (0.2-1.0); CO2 33.2 mmol/L (21.0-32.0); CREATININE 0.7 mg/dL (0.55-1.02); Calcium 9.8 mg/dL (8.5-10.1); Chloride 99 mmol/L (98-107); Estimated GFR 97.72 (mL/min/1.73m2); Glucose 162 mg/dL (74-106); Magnesium 1.9 mg/dL (1.8-2.4); Potassium 3.7 mmol/L (3.5-5.1); Sodium 136 mmol/L (136-145); TSH 0.24 uIU/mL (0.36-3.74); Total Protein 6.6 g/dL (6.4-8.2)
== END 2023-06-30 23:59 | disposition home or self-care (01) ==
LOC: INF 04:00
PROVIDERS: Nurse Practitioner Family; PCP Nurse Practitioner Family; Visit Provider Internal Medicine Medical Oncology
DX: Z79.899 Other long term (current) drug therapy (principal); C34.32 Malignant neoplasm of lower lobe, left bronchus or lung; Z45.2 Encounter for adjustment and management of vascular access device
CPT/HCPCS: 36591; 80053; 83735; 84439; 84443; 85025